=== PATIENT | female | born 1935 | race Caucasian/White ===

== ENCOUNTER 2016-12-15 06:13 | Day surgery (SDC) | payer MEDICARE ==
[2016-12-10 16:18] VITALS: BMI 25.4
[~2016-12-15 06:13] MED LIST: LACTATED RINGERS 1,000 ML IV SCH
[2016-12-15 06:55] VITALS: RESP 16; TEMP 97.9
[2016-12-15] MEDS ORDERED: LIDOCAINE 1% 20 ML VIAL (10MG/ML) FOR IV START INTRADERMA ONE (06:57)
[2016-12-15 07:01] LABS: INR 1.1 (<1.1); Prothrombin Time 10.9 sec (9.0-12.0)
[2016-12-15] MEDS ORDERED: MIDAZOLAM 2 MG/2 ML VIAL ONE (07:56)
[2016-12-15] MEDS ORDERED: TRIAMCINOLONE ACETONIDE 40 MG/ML 1 ML VIAL ONE (07:56)
[2016-12-15] MEDS ORDERED: BUPIVACAINE (PF) 0.5% 30 ML VIAL ONE (07:56)
[2016-12-15] MEDS ORDERED: fentaNYL (PF) 50 MCG/ML 2 ML AMP ONE (07:56)
--- NOTE | 2016-12-15 08:27 | P.PCN ---
Date of Procedure: 12/15/16 Procedure(s) Performed: PREOPERATIVE DIAGNOSIS:1- Lumbar post laminectomy syndrome. 2-bilateral trochanteric bursitis POSTOPERATIVE DIAGNOSIS= same as preoperative diagnosis PROCEDURE: 1. Caudal epidural steroid injection under fluoroscopic guidance. 2-bilateral trochanteric bursa steroid injection under fluoroscopy guidance ANESTHESIA= Local with 1% lidocaine; 5ml for subcutaneous infiltrations and IV versed 1 mg ,and fentanyl 50 mcg EBL: None. PROCEDURE INDICATION: The patient with neuropathic pain radiating distally returns for caudal epidural steroid injection and bilateral trochanteric bursa steroid injection. PROCEDURE DESCRIPTION: The patient was seen and identified in the preoperative area. Risks, benefits, complications, and alternatives were discussed with the patient. The patient agreed to proceed with the procedure and signed the consent. IV was started, and vital signs were stable. Patient was taken to the OR and time out was completed. The patient was placed in the prone position on procedure table and a pillow was placed under the abdomen to reduce lumbar lordosis. The lumbosacral area was prepped and draped in the usual sterile fashion. Critical pause was taken. Vital signs were closely monitored during the procedure. Using lateral fluoroscopy the anterior-posterior plates of the sacrum were identified and the skin and deeper tissues corresponding into sacrococcygeal ligament were anesthetized using approximately 3 mL of 1% lidocaine. Then under fluoroscopy, a 3-1/2-inch 20-gauge Tuohy epidural needle was guided through the sacrococcygeal ligament, and into the epidural space. then after negative aspiration for CSF, blood, and with no paresthesias, Kenalog 40mg, 2ml of 1% preservative free Lidocaine with 6 ml of preservative free normal saline(total of 10ml)solution was injected with washout of epidurogram. Needle was withdrawn intact. (Omnipaque was not injected because patient has ALLERGY to IVP dye) Procedure description= the country bursa area/hip area prepped with chlorhexidine x3 , and draped with a sterile fashion, vital signs were closely monitored during the procedure, the fluoroscopy camera was placed in the AP view on the right trochanteric bursa was identified, local infiltration of the skin and subcutaneous tissue with lidocaine 1% 2 mL then a 22-gauge Quincke- type spinal needle advanced slowly under fluoroscopy and placed in the right trochanteric bursa,, placement confirmed with AP and lateral view, and after appropriate needle placement confirmed and after negative aspiration for heme and CSF and there was no paresthesia during the injection, 5 ml of Marcaine 0.5 % and 20 mg of Kenalog injected after negative aspiration, the needle removed, and the entire same procedure was repeated for the left trochanteric bursa Patient tolerated the procedure well without any complication, The patient returned to supine position after the back was cleaned and a Band- Aid applied, the patient transported to recovery room in stable condition and he was monitored for 30 minutes before he was discharged home and then patient was reexamined before going home and patient was discharged in stable condition and patient will follow up with the pain clinic in a few weeks COMPLICATIONS: None DISPOSITION / PLANS: The patient was placed in a supine position and transferred to the recovery area in a stable condition for observation and was discharged from the recovery room after meeting discharge criteria. Home discharge instructions given to the patient by the staff. The patient was reexamined prior to discharge. The patient will schedule a follow up in the clinic in 2-4 weeks.
--- NOTE | 2016-12-15 08:35 | FL ---
Fluoroscopy History: Caudal and Troch. Bursa Bilateral Caudal and Troch. Bursa Bilateral 5 sec fluoro
[2016-12-15 08:48] VITALS: BP 138/65; PULSE 63
[2016-12-15] MEDS ORDERED: IV FLUID CONTINUATION 1,000 ML IV ONE (09:02)
== END 2016-12-15 09:09 | disposition home or self-care (01) ==
LOC: ORPAIN 06:13
PROVIDERS: ATTEND Specialist
DX: M96.1 Postlaminectomy syndrome, not elsewhere classified (principal); M70.62 Trochanteric bursitis, left hip; M70.61 Trochanteric bursitis, right hip; Z88.2 Allergy status to sulfonamides; Z88.8 Allergy status to other drugs, medicaments and biological substances; Z91.041 Radiographic dye allergy status; Z88.5 Allergy status to narcotic agent; Z91.013 Allergy to seafood; M54.5 Low back pain; M79.2 Neuralgia and neuritis, unspecified
CPT/HCPCS: 99152; 85610; 62323; 20610; J2250; J3301; J3010

== ENCOUNTER 2017-01-29 08:29 | Day surgery (SDC) | payer MEDICARE ==
[2017-01-27 09:57] VITALS: BMI 23.2
[2017-01-29 08:52] VITALS: RESP 18; TEMP 98.1
[2017-01-29] MEDS ORDERED: IOHEXOL 180 MG/ML 1 ML ML ONE (09:18)
[2017-01-29] MEDS ORDERED: fentaNYL (PF) 50 MCG/ML 2 ML AMP ONE (09:18)
[2017-01-29] MEDS ORDERED: TRIAMCINOLONE ACETONIDE 40 MG/ML 1 ML VIAL ONE (09:18)
[2017-01-29] MEDS ORDERED: BUPIVACAINE (PF) 0.25% 30 ML VIAL ONE (09:18)
[2017-01-29] MEDS ORDERED: MIDAZOLAM 2 MG/2 ML VIAL ONE (09:18)
--- NOTE | 2017-01-29 09:33 | P.PCN ---
Date of Procedure: 01/29/17 Surgeon: Zachary Domínguez Pathology: none sent Condition: stable Disposition: PACU Description of Procedure: PREOPERATIVE DIAGNOSIS: Lumbar post laminectomy syndrome; bilateral trochanteric bursitis POSTOPERATIVE DIAGNOSIS: same PROCEDURE: 1. Caudal epidural steroid injection under fluoroscopic guidance. 2. Bilateral trochanteric bursa injections under fluoroscopic guidance ANESTHESIA: Local with 1% lidocaine; IV sedation with Versed/fentanyl EBL: None. PROCEDURE INDICATION: The patient with postlaminectomy syndrome and neuropathic pain radiating distally returns for caudal epidural steroid injection. Patient also has tenderness to palpation over bilateral hips and presents for bursa injection. Patient is on Coumadin but has been off for five days. PT 10.6, INR 1.0 this morning. PROCEDURE DESCRIPTION: The patient was seen and identified in the preoperative area. Risks, benefits, complications, and alternatives were discussed with the patient including but not limited to bleeding, infection, nerve damage, incomplete pain relief, and allergic reactions to medications.. The patient agreed to proceed with the procedures and signed the informed consent after all questions were answered. IV was started, and vital signs were stable. Patient was taken to the OR and time out was completed to verify proper patient , laterality of pain and procedure, and allergies. The patient was placed in the prone position on procedure table and a pillow was placed under the abdomen to reduce lumbar lordosis. The lumbosacral area was prepped and draped in the usual sterile fashion. Critical pause was taken. Vital signs were closely monitored during the procedure. Using lateral fluoroscopy the anterior-posterior plates of the sacrum were identified and the skin and deeper tissues corresponding into sacrococcygeal ligament were anesthetized using approximately 3 mL of 1% lidocaine. Then under fluoroscopy, a 3-1/2-inch 20-gauge Tuohy epidural needle/22-gauge 3-1/2 inch spinal needle was guided through the sacrococcygeal ligament, and into the epidural space. After negative aspiration for CSF, blood, and with no paresthesias, Kenalog 40mg, 3 ml of 1% preservative free lidocaine with 8ml of preservative free normal saline (total of 12 ml) solution was injected with washout of epidurogram. Needle was withdrawn intact. Skin was cleansed, and bandage was applied. Attention was then turned to the hips and bilateral hip areas were prepped and draped in the usual sterile fashion. The right subtronchanteric space was identified by fluoroscopy. Block solution was prepared with 40 mg of Kenalog and 9 ml of 0.25% bupivacaine preservative-free. After local infiltration, a 22- gauge 3.5 inch needle was advanced toward the right subtrochanteric space, and after contact with bone, the needle was retracted approximately 1 mm. After negative aspiration, 5 mL of block solution was injected. This was repeated on the Left side. [place] were removed intact, skin was cleansed, and bandages were applied. COMPLICATIONS: None. COMMENTS: DISPOSITION / PLANS: The patient was placed in a supine position and transferred to the recovery area in a stable condition for observation and was discharged from the recovery room after meeting discharge criteria. Home discharge instructions given to the patient by the staff. The patient was reexamined prior to discharge and there were no issues. The patient will schedule a follow up in the clinic in 4-6 weeks as this is her third injection.
[2017-01-29] MEDS ORDERED: IV FLUID CONTINUATION 1,000 ML IV ONE (09:39)
--- NOTE | 2017-01-29 09:45 | FL ---
Fluoroscopy INDICATION: Pain FINDINGS: Fluoroscopy time: 14 seconds. Images obtained: 4. IMPRESSIONS: 1. Documentation of fluoroscopy.
[2017-01-29 09:57] VITALS: BP 141/69; PULSE 61
== END 2017-01-29 10:13 | disposition home or self-care (01) ==
LOC: ORPAIN 08:29
PROVIDERS: ATTEND Anesthesiology
DX: G89.29 Other chronic pain (principal); M54.5 Low back pain; M96.1 Postlaminectomy syndrome, not elsewhere classified; M70.62 Trochanteric bursitis, left hip; M70.61 Trochanteric bursitis, right hip; E78.5 Hyperlipidemia, unspecified; I48.91 Unspecified atrial fibrillation; Z79.01 Long term (current) use of anticoagulants; I10 Essential (primary) hypertension; K21.9 Gastro-esophageal reflux disease without esophagitis; E03.9 Hypothyroidism, unspecified; Z79.82 Long term (current) use of aspirin; Z79.899 Other long term (current) drug therapy; Z88.2 Allergy status to sulfonamides; Z91.041 Radiographic dye allergy status; Z88.5 Allergy status to narcotic agent; Z91.013 Allergy to seafood
CPT/HCPCS: 62323; 20610; 99152; J2250; J3301; Q9965; J3010

== ENCOUNTER → 2017-01-29 | Outpatient (CLI) | payer MEDICARE ==
[2017-01-29 08:55] LABS: Prothrombin Time 10.6 sec (9.0-12.0)
[2017-01-29 10:42] LABS: Uric Acid 5.6 mg/dL (3.7-7.4)
[2017-01-29 10:45] LABS: Rheumatoid Factor, Qnt <9 IU/mL (<12)
== END | disposition home or self-care (01) ==
LOC: LABWHC1 08:00
PROVIDERS: ATTEND Internal Medicine
DX: Z51.81 Encounter for therapeutic drug level monitoring (principal); Z79.01 Long term (current) use of anticoagulants
CPT/HCPCS: 36415; 84550; 85610; 85652; 86038; 86431

== ENCOUNTER → 2017-02-23 | Outpatient (CLI) | payer MEDICARE ==
[2017-02-23 15:16] VITALS: BP 109/52; PULSE 70; RESP 16; TEMP 97.8
--- NOTE | 2017-02-23 19:28 | P.PN ---
Subjective This is follow-up visit for this patient with a history of severe and chronic low back pain secondary to lumbar postlaminectomy pain syndrome Bilateral trochanteric bursitis, status post caudal epidural steroid injections, and bilateral trochanteric bursa steroid injection, and this helped Her low back pain significantly, her visual analog scale now is 2/10 since the injection, it was 8/10 before the injection, and she is currently on [place] 7.5/325 every 6 hours when necessary (she is getting prescription refills from her primary care doctor Tushar ) Patient denies any side effects of the medication, denies excessive drowsiness or sleepiness, denies suicidal ideation, and reports that the current pain medication is helping To control the pain and improve activity of daily living Physical Examinations : 1-Constitutiona : Cooperative , not in acute distress . 2-HEENT : nech ; supple , no Lymphadenopathy , no Thyromegaly , normal thyroid size . eyes : no ptosis , no icterus, no photophobia . ENT : normal of hearing , normal oropharynx , no Thrush . 3- Respiratory : Chest clear to auscultations Bilaterally , no wheezing , no Rhonchi . 4- Cardiovascular : regular rate and rhythem , S1 , S2 , no S3 , no S4. 5- Gastrointestinal : abdomen soft no tenderness , bowel sounds positive all four quadrents , no organomegally . 6- Genitourinary : Defferred . 7- neurologic : Cranial nerve II to XII intact , no focal neurological deffecit . 8-psychatric : alert , oriented X 3 , appropriate affect , intact judgment and insight . 9-Lymphatic : no Lymphadenopathy . 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, and bilateral trochanteric bursitis Pain improved significantly after the injection , and she is currently taking [place] 7.5/325 every 6 hours when necessary She denies any side effect of the medication , and she reported the current pain medication helping her to control her pain - diagnoses, prognosis, and treatment options including but not limited to physical therapy, surgical interventions, interventional therapies , and medication management including narcotics and adjuvant medication were discussed with the patient and all The questions answered, patient will follow up in the pain clinic in 2 months, if she had pain at that time then we'll consider scheduling her to Have cobbled appearance steroid injection, and to Trechonteric bursa steroid injection, and she has to stop Coumadin for 5 days before The procedure -medication management = she is getting medication refilled from her primary care * Objective - Vital Signs Vital signs: Vital Signs Temp 97.8 F 02/23/17 15:11 Pulse 70 02/23/17 15:11 Resp 16 02/23/17 15:11 BP 109/52 02/23/17 15:11 Pulse Ox 96 02/23/17 15:11 Intake & Output 02/23/17 02/23/17 02/24/17 06:59 18:59 06:59 Weight 55.792 kg
== END | disposition home or self-care (01) ==
LOC: PNWHC3 14:28
PROVIDERS: ATTEND Specialist
DX: M96.1 Postlaminectomy syndrome, not elsewhere classified (principal); M70.62 Trochanteric bursitis, left hip; M70.61 Trochanteric bursitis, right hip; Z79.899 Other long term (current) drug therapy
CPT/HCPCS: 99211

== ENCOUNTER → 2017-04-13 | Outpatient (CLI) | payer MEDICARE ==
[2017-04-13 14:12] VITALS: BP 159/64; PULSE 59; RESP 16; TEMP 97.9
--- NOTE | 2017-04-13 14:42 | P.PN ---
Progress Note - Text This is a nice 82-year-old lady with history of failed back surgery syndrome and lower back pain with radiation to the right lower extremity down to the right foot however with no paresthesia in the lower extremities. The patient feels mild weakness in the right lower extremity and she uses cane for ambulation. The patient gets significant pain relief after the injections that she gets in our clinic namely caudal epidural steroid injection with bilateral greater trochanter steroid injection. The patient had at least 3 weeks of complete pain relief after the last injection and she would like us to do another injection since her pain is starting to come back. The patient had 2 steroid injections in 2017 so far and she had 4 of them in 2016. The patient is aware that we have to avoid overusage of steroids for these injections however I think she will benefit from another injection in April 2017. The patient also understands that she has to stop her Coumadin 5 days before the date of any future injection. The patient uses [place] as needed for her pain and she gets that prescribed by her family physician. By physical exam she is alert oriented 3 in no apparent distress. Neuro exam of the lower extremities showed decreased muscle strength to 4 out of 5 for right knee flexion and extension compared to the left side and she has normal ankle flexion and extension bilaterally symmetrically. She does have tenderness in the tendons of the right hamstrings. she also has tenderness in both greater trochanters. She has decreased right knee reflex compared to the left side and absent ankle reflexes bilaterally. We will see the patient in a few weeks for her caudal epidural steroid injection with bilateral greater trochanter injection under fluoroscopic guidance. Also give the patient a DVD to explain spinal cord stimulator trial because she might be a good candidate for this procedure given that she has both lower back pain with radiation to the right lower extremity, however we would have to get clearance from her plastic surgeon about the Coumadin treatment during that trial period.
== END | disposition home or self-care (01) ==
LOC: PNWHC3 13:48
PROVIDERS: ATTEND Anesthesiology
DX: M54.5 Low back pain (principal); Z79.899 Other long term (current) drug therapy; Z79.52 Long term (current) use of systemic steroids
CPT/HCPCS: 99211

== ENCOUNTER → 2017-04-24 | Outpatient (CLI) | payer MEDICARE ==
--- NOTE | 2017-04-24 11:26 | MM ---
Reason for exam: clinical finding. Last mammogram was performed 6 years and 3 months ago. History: Patient is postmenopausal, history of other cancer, and had first child at age 33. Family history of premenopausal breast cancer in 2 sisters. Cyst aspiration of the right breast. 2 excisional biopsies of the right breast. Indicated problem(s): pain in the right breast. Physical Findings: Nurse did not find any significant physical abnormalities on exam. MG 3D Diag Mammo W/Cad VANNESSA Bilateral CC and MLO view(s) were taken. Prior study comparison: January 31, 2011, bilateral digital screening mammo w/CAD. November 06, 2009, bilateral diagnostic digital mammog. There are scattered fibroglandular densities. There is no discrete abnormality. No significant new findings when compared with previous films. These results were verbally communicated with the patient and result sheet given to the patient on 04/24/17. ASSESSMENT: Benign, BI-RAD 2 RECOMMENDATION: Routine screening mammogram of both breasts in 1 year.
--- NOTE | 2017-04-24 11:27 | USB ---
Reason for exam: clinical finding. History: Patient is postmenopausal, history of other cancer, and had first child at age 33. Family history of premenopausal breast cancer in 2 sisters. Cyst aspiration of the right breast. 2 excisional biopsies of the right breast. Indicated problem(s): pain in the right breast. US Breast RT Right breast ultrasound includes all four quadrants, the retroareolar region and axilla. Finding demonstrates no cystic or solid lesion seen. These results were verbally communicated with the patient and result sheet given to the patient on 04/24/17. ASSESSMENT: Negative, BI-RAD 1 RECOMMENDATION: Routine screening mammogram of both breasts in 1 year.
== END | disposition home or self-care (01) ==
LOC: RADMAMWWP 09:16
PROVIDERS: ATTEND Internal Medicine
DX: N64.4 Mastodynia (principal)
CPT/HCPCS: 76641; G0204; G0279

== ENCOUNTER 2017-05-14 07:47 | Day surgery (SDC) | payer MEDICARE ==
[2017-05-14 08:55] VITALS: RESP 18; TEMP 97.8
[2017-05-14] MEDS ORDERED: LIDOCAINE 1% 20 ML VIAL (10MG/ML) FOR IV START SQ ONE (09:07)
[2017-05-14] MEDS ORDERED: DEXAMETHASONE SOD PHOS (MDV) 100 MG/10 ML VIAL ONE (09:39)
[2017-05-14] MEDS ORDERED: fentaNYL (PF) 50 MCG/ML 2 ML AMP ONE (09:39)
[2017-05-14] MEDS ORDERED: BUPIVACAINE (PF) 0.5% 30 ML VIAL ONE (09:39)
[2017-05-14] MEDS ORDERED: MIDAZOLAM 2 MG/2 ML VIAL ONE (09:39)
--- NOTE | 2017-05-14 10:08 | FL ---
Fluoroscopy INDICATION: Pain FINDINGS: Fluoroscopy time: 11 seconds. Images obtained: 4. IMPRESSIONS: 1. Documentation of fluoroscopy.
[2017-05-14] MEDS ORDERED: IV FLUID CONTINUATION 1,000 ML IV ONE (10:10)
[2017-05-14 10:30] VITALS: BP 135/55; PULSE 56
== END 2017-05-14 10:43 | disposition home or self-care (01) ==
LOC: ORPAIN 07:47
PROVIDERS: ATTEND Specialist
DX: M96.1 Postlaminectomy syndrome, not elsewhere classified (principal); M70.62 Trochanteric bursitis, left hip; M70.61 Trochanteric bursitis, right hip; M54.5 Low back pain; Z88.8 Allergy status to other drugs, medicaments and biological substances; Z91.041 Radiographic dye allergy status
CPT/HCPCS: 99152; 62323; 20610; J2250; J3010; J1100

== ENCOUNTER → 2017-05-14 | Outpatient (CLI) | payer MEDICARE ==
[2017-05-14 08:17] LABS: INR 1.1 (<1.1); Prothrombin Time 11.2 sec (9.0-12.0)
--- NOTE | 2017-05-14 10:08 | P.PCN ---
Date of Procedure: 05/14/17 Preoperative Diagnosis: Postoperative Diagnosis: Procedure(s) Performed: PREOPERATIVE DIAGNOSIS:1- Lumbar post laminectomy syndrome. 2-bilateral trochanteric bursitis POSTOPERATIVE DIAGNOSIS:1- Lumbar post laminectomy syndrome. 2-bilateral trochanteric bursitis PROCEDURE: 1. Caudal epidural steroid injection under fluoroscopic guidance. 2. Bilateral trochanteric bursa steroid injection under fluoroscopy guidance ANESTHESIA: Local with 1% lidocaine; 5ml for subcutaneous infiltrations and IV versed 2 mg ,and fentanyl 50 mcg EBL: None. PROCEDURE INDICATION: The patient with neuropathic pain radiating distally returns for caudal epidural steroid injection. PROCEDURE DESCRIPTION: The patient was seen and identified in the preoperative area. Risks, benefits, complications, and alternatives were discussed with the patient. The patient agreed to proceed with the procedure and signed the consent. IV was started, and vital signs were stable. Patient was taken to the OR and time out was completed. The patient was placed in the prone position on procedure table and a pillow was placed under the abdomen to reduce lumbar lordosis. The lumbosacral area was prepped and draped in the usual sterile fashion. Critical pause was taken. Vital signs were closely monitored during the procedure. Using lateral fluoroscopy the anterior-posterior plates of the sacrum were identified and the skin and deeper tissues corresponding into sacrococcygeal ligament were anesthetized using approximately 3 mL of 1% lidocaine. Then under fluoroscopy, a 3-1/2-inch 20-gauge Tuohy epidural needle was guided through the sacrococcygeal ligament, and into the epidural space using loss of resistence technique.(Omnipaque was not injected because patient had ALLERGY to IVP dye) after negative aspiration for CSF, blood, and with no paresthesias, dexamethason 10 mg, 2ml of 1% preservative free Lidocaine with 6 ml of preservative free normal saline(total of 10ml)solution was injected with washout of epidurogram. Needle was withdrawn intact. Then after that the right hip area prepped with chlorhexidine 3, and then the right-sided trochanteric bursa identified under fluoroscopy, local infiltration of the skin and subcutaneous tissue with lidocaine 1% 1 ml then a 22-gauge Quincke-type needle advanced slowly under fluoroscopy and placed in the right trochanteric bursa, and after negative aspiration, Marcaine 0.5% 5 ML mixed with 5 mg of dexamethasone injected after negative aspiration and there was no paresthesia during the injection, then the same procedure repeated for the left side ,and I did the left trochanteric bursa steroid injection patient tolerated the procedure well without any complications COMPLICATIONS: None DISPOSITION / PLANS: The patient was placed in a supine position and transferred to the recovery area in a stable condition for observation and was discharged from the recovery room after meeting discharge criteria. Home discharge instructions given to the patient by the staff. The patient was reexamined prior to discharge. The patient will schedule a follow up in the clinic in 2-4 weeks. Implants: Indications for Procedure: Operative Findings: Description of Procedure:
== END | disposition home or self-care (01) ==
LOC: LABWHC1 07:31
PROVIDERS: ATTEND Anesthesiology
DX: Z51.81 Encounter for therapeutic drug level monitoring (principal); Z79.01 Long term (current) use of anticoagulants
CPT/HCPCS: 36415; 85610

== ENCOUNTER 2017-10-03 14:38 | Emergency (ER) | payer MEDICARE ==
[2017-10-03 14:47] VITALS: RESP 18
[2017-10-03] MEDS ORDERED: KETOROLAC 30 MG/ML 1 ML VIAL IM STA (15:50)
--- NOTE | 2017-10-03 15:50 | ED ---
General Adult HPI - General Chief complaint: ENT Stated complaint: Jaw Pain Time Seen by Provider: 10/03/17 14:49 Source: patient, RN notes reviewed, old records reviewed Mode of arrival: wheelchair Limitations: no limitations - History of Present Illness Initial comments: This is a 82-year-old female to the ER for evaluation. Patient presents today for evaluation regarding dropping. Left-sided jaw pain. Severe. She woke up with this this morning although she did have some pain yesterday. Patient can bite down with his is having severe pain in the left jaw. Patient has no temporal pain. Patient has no problems with hearing. Patient was at the ER today from medics pressure evaluation regarding dropping within x-ray x-ray showed no fracture. - Related Data Home Medications Medication Instructions Recorded Confirmed Levothyroxine Sodium [Synthroid] 112 mcg PO QAM 04/27/14 05/14/17 Montelukast [Singulair] 10 mg PO HS 04/27/14 05/14/17 ALPRAZolam [Xanax] 0.5 mg PO BID PRN 01/03/15 05/14/17 Azelastine HCl [Astepro] 1 spray NASAL BID PRN 01/03/15 05/14/17 Biotin 5 mg PO DAILY 01/03/15 05/14/17 Cholecalciferol [Vitamin D3] 2,000 unit PO DAILY 01/03/15 05/14/17 Diphenox-Atrop 2.5-0.025 mg 1 - 2 tab PO BID PRN 01/03/15 05/14/17 [Lomotil] Iron 65 mg PO HS 01/03/15 05/14/17 Aspirin 81 mg PO Q48H 07/12/15 05/14/17 Atorvastatin Calcium [Lipitor] 20 mg PO HS 07/12/15 05/14/17 Losartan Potassium 25 mg PO HS 07/12/15 05/14/17 Primidone [Mysoline] 50 mg PO TID 07/12/15 05/14/17 Triamcinolone 0.1% Lotion [Kenalog 1 applic TOPICAL BID PRN 07/12/15 05/14/17 0.1% Lotion] Metoprolol Tartrate [Lopressor] 25 mg PO QAM 02/22/16 05/14/17 Warfarin [Coumadin] 5 mg PO SUMOWEFR 02/22/16 05/14/17 Warfarin [Coumadin] 8 mg PO TUTHSA 02/22/16 05/14/17 Diazepam [Valium] 5 mg PO DIRECTED PRN 04/24/16 05/14/17 HYDROcodone/APAP 7.5-325MG [[place] 1 tab PO Q4H PRN 04/24/16 05/14/17 7.5-325] Erythromycin Ophth Oint [Romycin 1 drops BOTH EYES DAILY PRN 09/09/16 05/14/17 Ophth Oint] Lidocaine 5% Patch [Lidoderm] 1 patch TOPICAL DAILY PRN 12/10/16 05/14/17 Famotidine [Pepcid] 20 mg PO QAM 12/15/16 05/14/17 Potassium 25 mg PO DAILY 01/27/17 05/14/17 Previous Rx's Medication Instructions Recorded Naproxen 250 mg PO BID #14 tablet 10/03/17 Allergies Allergy/AdvReac Type Severity Reaction Status Date / Time adhesive Allergy Rash/Hives, Verified 10/03/17 16:27 RIPS SKIN Iodinated Contrast- Oral and Allergy Unknown Verified 10/03/17 16:27 IV Dye [Iodinated Contrast Media - IV Dye] meperidine HCl [From Demerol] Allergy Hallucinati Verified 10/03/17 16:27 ons shellfish derived Allergy Anaphylaxis Verified 10/03/17 16:27 Sulfa (Sulfonamide Allergy Unknown Verified 10/03/17 16:27 Antibiotics) zolpidem tartrate Allergy Hallucinati Verified 10/03/17 16:27 [From Ambien] ons morphine AdvReac Nausea & Verified 10/03/17 16:27 Vomiting & Diarrhea Review of Systems ROS Statement: Those systems with pertinent positive or pertinent negative responses have been documented in the HPI. ROS Other: All systems not noted in ROS Statement are negative. Past Medical History Past Medical History: Atrial Fibrillation, Asthma, Coronary Artery Disease (CAD) , Cancer, COPD, CVA/TIA, GERD/Reflux, Hyperlipidemia, Hypertension, Osteoarthritis (OA), Thyroid Disorder Additional Past Medical History / Comment(s): PAIN IN LOWER BACK AND GOES DOWN HER LEGS TO HER FEET. Hx spastic colitis, skin ca on face and shoulder, kidney stones. History of Any Multi-Drug Resistant Organisms: None Reported Past Surgical History: Breast Surgery, Cholecystectomy, Coronary Bypass/CABG, Heart Catheterization, Hysterectomy, Orthopedic Surgery Additional Past Surgical History / Comment(s): MULTIPLE SKIN CANCERS BURNED OFF THIS PAST MONTH (05/09).Hip surgery, surgery to repair upper palate, hand surgery. CABG X4. [facility] Procedures. Past Anesthesia/Blood Transfusion Reactions: No Reported Reaction Past Psychological History: No Psychological Hx Reported Smoking Status: Never smoker Past Alcohol Use History: Rare Past Drug Use History: None Reported - Past Family History Sister(s) Family Medical History: Cancer Additional Family Medical History / Comment(s): breast cancer Father Family Medical History: Cancer Additional Family Medical History / Comment(s): LUNG CANCER Mother Family Medical History: CVA/TIA General Exam Limitations: no limitations General appearance: alert, in no apparent distress Head exam: Present: atraumatic, normocephalic, normal inspection Eye exam: Present: normal appearance, PERRL, EOMI. Absent: scleral icterus, conjunctival injection, periorbital swelling ENT exam: Present: normal exam, mucous membranes moist Neck exam: Present: normal inspection. Absent: tenderness, meningismus, lymphadenopathy Respiratory exam: Present: normal lung sounds bilaterally. Absent: respiratory distress, wheezes, rales, rhonchi, stridor Cardiovascular Exam: Present: regular rate, normal rhythm, normal heart sounds. Absent: systolic murmur, diastolic murmur, rubs, gallop, clicks GI/Abdominal exam: Present: soft, normal bowel sounds. Absent: distended, tenderness, guarding, rebound, rigid Extremities exam: Present: normal inspection, full ROM, normal capillary refill. Absent: tenderness, pedal edema, joint swelling, calf tenderness Back exam: Present: normal inspection Neurological exam: Present: alert, oriented X3, CN II-XII intact Psychiatric exam: Present: normal affect, normal mood Skin exam: Present: warm, dry, intact, normal color. Absent: rash Course Vital Signs 10/03/17 10/03/17 14:41 15:58 Temperature 96.8 F L Pulse Rate 53 L 54 L Respiratory 18 18 Rate Blood Pressure 194/77 177/75 O2 Sat by Pulse 99 98 Oximetry - Reevaluation(s) Reevaluation #1: 10/03/17 15:48 Patient refusing pain control at this time, states she takes [place] and does not want take more than one [place] in 1 day Medical Decision Making - Medical Decision Making 82 female the ER for evaluation. Patient currently has left-sided jaw pain. TMJ. Patient will be put on appropriate therapy to discharge from - Radiology Data Radiology results: report reviewed (CT soft tissue neck and facial bones is negative), image reviewed Disposition Clinical Impression: Disorder of left temporomandibular joint Disposition: HOME SELF-CARE Condition: Good Instructions: Temporomandibular Disorder (ED) Referrals: Fabián Finley MD [Primary Care Provider] - 1-2 days
--- NOTE | 2017-10-03 15:58 | CT ---
EXAMINATION TYPE: CT facial bones wo con DATE OF EXAM: 10/03/2017 COMPARISON: NONE HISTORY: Let sided jaw pain. CT DLP: 605.9 mGycm Automated exposure control for dose reduction was used. TECHNIQUE: CT scan of the sinuses is performed without contrast, axial images are obtained, coronal r eformatted images are also reviewed. FINDINGS: The orbital margins are intact. There is no evidence of a blowout fracture. There is fairly normal aeration of the paranasal sinuses. There is bilateral patency of the ostiomeatal complex. Max illa is intact. The mandibular ring appears intact. Zygomatic arches appear normal. There is no evide nce of an orbital mass. Nasal bone appears intact. There is some deformity of the mandibular condyles with narrowing of the temporomandibular joint spac es. 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 No fracture seen.
--- NOTE | 2017-10-03 16:02 | CT ---
EXAMINATION TYPE: CT soft tissue neck wo con DATE OF EXAM: 10/03/2017 HISTORY: Let sided jaw pain. COMPARISON: NONE CT DLP: 297.9 mGycm. Automated Exposure Control for Dose Reduction was Utilized. TECHNIQUE: CT scan of the neck is performed , axial images are obtained, coronal and sagittal reform atted images are reviewed. FINDINGS: There is atherosclerotic calcification in the carotid arteries at the bifurcations. Epiglottis appear s normal. Subglottic trachea appears normal. There is no evidence of a pharyngeal mass. Thyroid gland is small. There is asymmetry of the submandibular salivary glands. The parotid glands are symmetric. The tonsils and adenoids appear normal. There are spondylotic changes in the mid and lower cervical spine. There is no evidence of any significant cervical adenopathy. CONCLUSION: Negative CT scan of the cervical soft tissues. Atherosclerotic vascular disease noted.
[2017-10-03] MEDS ORDERED: DEXAMETHASONE 4 MG TAB PO STA (16:30)
[2017-10-03 16:40] VITALS: BP 150/64; PULSE 69; TEMP 97
== END 2017-10-03 16:48 | disposition home or self-care (01) ==
LOC: EC 14:38
DX: M26.602 Left temporomandibular joint disorder, unspecified (principal); I48.91 Unspecified atrial fibrillation; J45.909 Unspecified asthma, uncomplicated; J44.9 Chronic obstructive pulmonary disease, unspecified; I25.10 Atherosclerotic heart disease of native coronary artery without angina pectoris; K21.9 Gastro-esophageal reflux disease without esophagitis; E78.5 Hyperlipidemia, unspecified; I10 Essential (primary) hypertension; M19.90 Unspecified osteoarthritis, unspecified site; E07.9 Disorder of thyroid, unspecified; Z86.73 Personal history of transient ischemic attack (TIA), and cerebral infarction without residual deficits; Z85.828 Personal history of other malignant neoplasm of skin; Z79.82 Long term (current) use of aspirin; Z79.899 Other long term (current) drug therapy; Z79.01 Long term (current) use of anticoagulants; Z91.041 Radiographic dye allergy status; Z88.5 Allergy status to narcotic agent; Z88.2 Allergy status to sulfonamides; Z91.013 Allergy to seafood; Z91.048 Other nonmedicinal substance allergy status; Z88.8 Allergy status to other drugs, medicaments and biological substances
CPT/HCPCS: 70486; 70490; 99284; 96372; J8540; J1885

== ENCOUNTER → 2017-10-14 | Outpatient (CLI) | payer MEDICARE ==
--- NOTE | 2017-10-14 12:11 | XR ---
EXAMINATION TYPE: XR foot complete RT DATE OF EXAM: 10/14/2017 COMPARISON: NONE HISTORY: Nonhealing wound right second digit TECHNIQUE: Three-view right foot FINDINGS: Structures are osteopenic. Surgical clips are within the medial ankle. There is hallux valg us deformity of the first digit. No acute fractures are evident. No cortical erosion to suggest acute osteomyelitis radiographically a pparent. 3 phase bone scan could be performed for sufficient suspicion. IMPRESSION: 1. No suspicious changes to suggest acute osteomyelitis based on x-ray
== END | disposition home or self-care (01) ==
LOC: RADXRMAIN 11:29
PROVIDERS: ATTEND Internal Medicine
DX: M79.89 Other specified soft tissue disorders (principal); M19.90 Unspecified osteoarthritis, unspecified site

== ENCOUNTER 2018-01-24 13:52 | Observation (INO) | payer MEDICARE ==
[2018-01-24 14:41] LABS: Basophils % (A) 1 %; Eosinophils # (A) 0.1 k/uL (0-0.7); Eosinophils % (A) 3 %; HCT 37.2 % (34.0-46.0); HGB 11.7 gm/dL (11.4-16.0); Lymphocytes % (A) 23 %; MCH 31.1 pg (25.0-35.0); MCHC 31.4 g/dL (31.0-37.0); MCV 99.1 fL (80.0-100.0); Monocytes # (A) 0.3 k/uL (0-1.0); Monocytes % (A) 8 %; Neutrophils # (A) 2.7 k/uL (1.3-7.7); Neutrophils % (A) 63 %; Platelet Count 168 k/uL (150-450); RBC 3.75 m/uL (3.80-5.40); RDW 12.7 % (11.5-15.5); WBC 4.3 k/uL (3.8-10.6)
--- NOTE | 2018-01-24 14:43 | ED ---
General Adult HPI - General Chief complaint: Chest Pain Stated complaint: chest pain Time Seen by Provider: 01/24/18 14:03 Source: family Mode of arrival: wheelchair Limitations: no limitations - History of Present Illness Initial comments: 82-year-old female presents for evaluation of chest pain. Patient had a 30 minute episode of substernal chest pain that occurred approximately 3 hours ago. Patient's pain was while at rest. She was sitting at [employer]. Describes the pain as sharp. Nonradiating, no back pain no shoulder pain. Patient's pain is resolved at the time my evaluation. She denies any associated symptoms no nausea, no diaphoresis. No abdominal pain. Patient has past medical history of coronary artery disease status post CABG. She denies any chest pain with exertion over the past several months. Denies any lower extremity swelling. Denies cough or dyspnea. - Related Data Home Medications Medication Instructions Recorded Confirmed Montelukast [Singulair] 10 mg PO HS 04/27/14 01/24/18 ALPRAZolam [Xanax] 0.5 mg PO BID PRN 01/03/15 01/24/18 Azelastine HCl [Astepro] 1 spray NASAL BID PRN 01/03/15 01/24/18 Biotin 5 mg PO DAILY 01/03/15 01/24/18 Cholecalciferol [Vitamin D3] 2,000 unit PO DAILY 01/03/15 01/24/18 Diphenox-Atrop 2.5-0.025 mg 1 - 2 tab PO BID PRN 01/03/15 01/24/18 [Lomotil] Aspirin 81 mg PO Q48H 07/12/15 01/24/18 Atorvastatin Calcium [Lipitor] 20 mg PO HS 07/12/15 01/24/18 Losartan Potassium 25 mg PO HS 07/12/15 01/24/18 Primidone [Mysoline] 50 mg PO TID 07/12/15 01/24/18 Metoprolol Tartrate [Lopressor] 25 mg PO QAM 02/22/16 01/24/18 Warfarin [Coumadin] 8 mg PO TUTHSA 02/22/16 01/24/18 HYDROcodone/APAP 7.5-325MG [[place] 1 tab PO TID PRN 04/24/16 01/24/18 7.5-325] Famotidine [Pepcid] 20 mg PO QAM 12/15/16 01/24/18 Levothyroxine Sodium [Synthroid] 112 mcg PO DAILY 10/03/17 01/24/18 Temazepam [Restoril] 15 mg PO HS PRN 10/03/17 01/24/18 Warfarin [Coumadin] 5 mg PO SUMOWEFR 10/03/17 01/24/18 Albuterol Nebulized [Ventolin 2.5 mg INHALATION RT-BID PRN 01/24/18 01/24/18 Nebulized] Ammonium Lactate Lotion 1 applic TOPICAL BID PRN 01/24/18 01/24/18 [Lac-Hydrin 12% Lotion] Betamethasone/Propylene Glyc 1 applic TOPICAL DAILY PRN 01/24/18 01/24/18 [Betamethasone Dp Aug 0.05% Lot] Colloidal Oatmeal [Eucerin Eczema 1 applic TOPICAL BID PRN 01/24/18 01/24/18 Relief] Ferrous Sulfate [Feosol] 325 mg PO HS 01/24/18 01/24/18 Fluorouracil [Efudex] 1 applic TOPICAL DAILY PRN 01/24/18 01/24/18 Mometasone Furoate 1 applic TOPICAL DAILY PRN 01/24/18 01/24/18 traZODone HCL [Desyrel] 50 mg PO HS PRN 01/24/18 01/24/18 Allergies Allergy/AdvReac Type Severity Reaction Status Date / Time adhesive Allergy Rash/Hives, Verified 01/24/18 14:34 RIPS SKIN Iodinated Contrast- Oral and Allergy Unknown Verified 01/24/18 14:34 IV Dye [Iodinated Contrast Media - IV Dye] meperidine HCl [From Demerol] Allergy Hallucinati Verified 01/24/18 14:34 ons shellfish derived Allergy Anaphylaxis Verified 01/24/18 14:34 Sulfa (Sulfonamide Allergy Unknown Verified 01/24/18 14:34 Antibiotics) zolpidem tartrate Allergy Hallucinati Verified 01/24/18 14:34 [From Ambien] ons morphine AdvReac Nausea & Verified 01/24/18 14:34 Vomiting & Diarrhea Review of Systems ROS Statement: Those systems with pertinent positive or pertinent negative responses have been documented in the HPI. ROS Other: All systems not noted in ROS Statement are negative. Past Medical History Past Medical History: Atrial Fibrillation, Asthma, Coronary Artery Disease (CAD) , Cancer, COPD, CVA/TIA, GERD/Reflux, Hyperlipidemia, Hypertension, Osteoarthritis (OA), Thyroid Disorder Additional Past Medical History / Comment(s): PAIN IN LOWER BACK AND GOES DOWN HER LEGS TO HER FEET. Hx spastic colitis, skin ca on face and shoulder, kidney stones. History of Any Multi-Drug Resistant Organisms: None Reported Past Surgical History: Breast Surgery, Cholecystectomy, Coronary Bypass/CABG, Heart Catheterization, Hysterectomy, Orthopedic Surgery Additional Past Surgical History / Comment(s): MULTIPLE SKIN CANCERS BURNED OFF THIS PAST MONTH (05/09).Hip surgery, surgery to repair upper palate, hand surgery. CABG X4. [facility] Procedures. Past Anesthesia/Blood Transfusion Reactions: No Reported Reaction Past Psychological History: No Psychological Hx Reported Smoking Status: Never smoker Past Alcohol Use History: Rare Past Drug Use History: None Reported - Past Family History Sister(s) Family Medical History: Cancer Additional Family Medical History / Comment(s): breast cancer Father Family Medical History: Cancer Additional Family Medical History / Comment(s): LUNG CANCER Mother Family Medical History: CVA/TIA General Exam Limitations: no limitations General appearance: alert, in no apparent distress Head exam: Present: atraumatic, normocephalic Eye exam: Present: normal appearance, PERRL, EOMI Neck exam: Present: normal inspection. Absent: tenderness Respiratory exam: Present: normal lung sounds bilaterally. Absent: respiratory distress Cardiovascular Exam: Present: regular rate, normal rhythm GI/Abdominal exam: Present: soft. Absent: distended, tenderness Extremities exam: Present: normal inspection, normal capillary refill. Absent: pedal edema Neurological exam: Present: alert, oriented X3, CN II-XII intact. Absent: motor sensory deficit Psychiatric exam: Present: normal affect, normal mood Skin exam: Present: warm, dry, intact. Absent: cyanosis, diaphoretic Course Vital Signs 01/24/18 01/24/18 13:59 15:22 Temperature 98.0 F Pulse Rate 58 L 50 L Respiratory 20 16 Rate Blood Pressure 139/69 147/67 O2 Sat by Pulse 100 100 Oximetry EKG Findings - EKG Comments: EKG Findings:: EKG shows sinus bradycardia, ventricular rate 59,. 170, QRS duration 80, QTC 41, no ST segment elevation Medical Decision Making - Medical Decision Making 82-year-old female presenting with anterior chest pain. Pain resolved at the time my evaluation. She has no chest pain while in the emergency department. EKG shows no definitive ischemic changes. Chest x-ray negative for acute process. She does have history of atrial fibrillation and is on Coumadin. White blood cell count normal 4.3, hemoglobin 11.7, potassium mildly elevated at 5.7 creatinine 1.4, patient does have baseline CK D, most recent creatinine 1.09. BNP is normal, troponin is negative. Patient's pain is atypical and resolved, however she does have significant risk factors. She will be placed in observation for serial cardiac enzymes and cardiology consult. - Lab Data Result diagrams: 01/24/18 14:10 01/24/18 14:10 Lab Results 01/24/18 01/24/18 01/24/18 Range/Units 14:10 14:10 14:10 WBC 4.3 (3.8-10.6) k/uL RBC 3.75 L (3.80-5.40) m/uL Hgb 11.7 (11.4-16.0) gm/dL Hct 37.2 (34.0-46.0) % MCV 99.1 (80.0-100.0) fL MCH 31.1 (25.0-35.0) pg MCHC 31.4 (31.0-37.0) g/dL RDW 12.7 (11.5-15.5) % Plt Count 168 (150-450) k/uL Neutrophils % 63 % Lymphocytes % 23 % Monocytes % 8 % Eosinophils % 3 % Basophils % 1 % Neutrophils # 2.7 (1.3-7.7) k/uL Lymphocytes # 1.0 (1.0-4.8) k/uL Monocytes # 0.3 (0-1.0) k/uL Eosinophils # 0.1 (0-0.7) k/uL Basophils # 0.0 (0-0.2) k/uL PT (9.0-12.0) sec INR (<1.2) APTT (22.0-30.0) sec Sodium 143 (137-145) mmol/L Potassium 5.7 H (3.5-5.1) mmol/L Chloride 107 (98-107) mmol/L Carbon Dioxide 27 (22-30) mmol/L Anion Gap 9 mmol/L BUN 36 H (7-17) mg/dL Creatinine 1.44 H (0.52-1.04) mg/dL Est GFR (MDRD) Af Amer 42 (>60 ml/min/1.73 sqM) Est GFR (MDRD) Non-Af 35 (>60 ml/min/1.73 sqM) Glucose 114 H (74-99) mg/dL Calcium 9.0 (8.4-10.2) mg/dL Magnesium 2.0 (1.6-2.3) mg/dL Total Bilirubin 0.3 (0.2-1.3) mg/dL AST 33 (14-36) U/L ALT 37 (9-52) U/L Alkaline Phosphatase 77 (38-126) U/L Total Creatine Kinase 49 (30-135) U/L CK-MB (CK-2) <0.2 (0.0-2.4) ng/mL CK-MB (CK-2) Rel Index Troponin I <0.012 (0.000-0.034) ng/mL NT-Pro-B Natriuret Pep pg/mL Total Protein 6.4 (6.3-8.2) g/dL Albumin 3.8 (3.5-5.0) g/dL Lipase 103 (23-300) U/L 01/24/18 01/24/18 Range/Units 14:10 14:10 WBC (3.8-10.6) k/uL RBC (3.80-5.40) m/uL Hgb (11.4-16.0) gm/dL Hct (34.0-46.0) % MCV (80.0-100.0) fL MCH (25.0-35.0) pg MCHC (31.0-37.0) g/dL RDW (11.5-15.5) % Plt Count (150-450) k/uL Neutrophils % % Lymphocytes % % Monocytes % % Eosinophils % % Basophils % % Neutrophils # (1.3-7.7) k/uL Lymphocytes # (1.0-4.8) k/uL Monocytes # (0-1.0) k/uL Eosinophils # (0-0.7) k/uL Basophils # (0-0.2) k/uL PT 14.0 H (9.0-12.0) sec INR 1.5 H (<1.2) APTT 25.1 (22.0-30.0) sec Sodium (137-145) mmol/L Potassium (3.5-5.1) mmol/L Chloride (98-107) mmol/L Carbon Dioxide (22-30) mmol/L Anion Gap mmol/L BUN (7-17) mg/dL Creatinine (0.52-1.04) mg/dL Est GFR (MDRD) Af Amer (>60 ml/min/1.73 sqM) Est GFR (MDRD) Non-Af (>60 ml/min/1.73 sqM) Glucose (74-99) mg/dL Calcium (8.4-10.2) mg/dL Magnesium (1.6-2.3) mg/dL Total Bilirubin (0.2-1.3) mg/dL AST (14-36) U/L ALT (9-52) U/L Alkaline Phosphatase (38-126) U/L Total Creatine Kinase (30-135) U/L CK-MB (CK-2) (0.0-2.4) ng/mL CK-MB (CK-2) Rel Index Troponin I (0.000-0.034) ng/mL NT-Pro-B Natriuret Pep 685 pg/mL Total Protein (6.3-8.2) g/dL Albumin (3.5-5.0) g/dL Lipase (23-300) U/L Disposition Clinical Impression: Chest pain Disposition: ADMITTED IP TO THIS [facility] Condition: Stable Referrals: Fabián Finley MD [Primary Care Provider] - 1-2 days Decision to Admit Reason: Admit from EC Decision Date: 01/24/18 Decision Time: 16:12
[2018-01-24 14:52] LABS: INR 1.5 (<1.2); Partial Thromboplastin Time 25.1 sec (22.0-30.0)
[2018-01-24 14:53] LABS: Albumin 3.8 g/dL (3.5-5.0); Potassium 5.7 mmol/L (3.5-5.1); Total Bilirubin 0.3 mg/dL (0.2-1.3); Total Protein 6.4 g/dL (6.3-8.2)
[2018-01-24 15:02] LABS: Creatine Kinase 49 U/L (30-135)
--- NOTE | 2018-01-24 15:07 | XR ---
EXAMINATION TYPE: XR chest 2V DATE OF EXAM: 01/24/2018 COMPARISON: 09/25/2014 HISTORY: Chest pain TECHNIQUE: Frontal and lateral views of the chest are obtained. FINDINGS: There is no heart failure nor confluent pneumonic infiltrate. Costophrenic angles are rin r. There are sternal wires. There are chest leads. Bony thorax appears intact. IMPRESSION: No active cardiopulmonary disease. No change.
[2018-01-24 15:16] LABS: Creatine Kinase MB <0.2 ng/mL (0.0-2.4); Troponin I <0.012 ng/mL (0.000-0.034)
[2018-01-24] MEDS ORDERED: ACETAMINOPHEN TAB 325 MG TAB PO PRN (16:12)
[2018-01-24] MEDS ORDERED: NALOXONE 0.4 MG/ML 1 ML VIAL IV PRN (16:12)
[2018-01-24] MEDS ORDERED: ALBUTEROL NEBULIZED 2.5 MG/3 ML INHALATION PRN (16:14)
[2018-01-24] MEDS ORDERED: ALPRAZolam 0.5 MG TAB PO PRN (16:14)
[2018-01-24] MEDS: SODIUM CHLORIDE 0.9% 1,000 ML IV SCH (16:49)
[2018-01-24] MEDS ORDERED: ASPIRIN 81 MG PO SCH (17:00)
[2018-01-24] MEDS ORDERED: WARFARIN 5 MG TAB PO SCH (18:00)
[2018-01-24 18:08] VITALS: BMI 24.0
[2018-01-24 19:49] LABS: Creatine Kinase 48 U/L (30-135)
[2018-01-24 20:03] LABS: Creatine Kinase MB 0.4 ng/mL (0.0-2.4); Troponin I <0.012 ng/mL (0.000-0.034)
[2018-01-24] MEDS ORDERED: ATORVASTATIN 20 MG TAB PO SCH (21:00)
[2018-01-24] MEDS ORDERED: LOSARTAN 25 MG TAB PO SCH (21:00)
[2018-01-24] MEDS ORDERED: TEMAZEPAM 15 MG CAP PO PRN (21:55)
[2018-01-24] MEDS ORDERED: NITROGLYCERIN SL TABS 0.4 MG TAB SUBLINGUAL PRN (21:56)
[2018-01-24] MEDS: PRIMIDONE 50 MG TAB PO SCH (22:41)
[2018-01-25 01:33] LABS: Calcium 8.9 mg/dL (8.4-10.2); Potassium 5.9 mmol/L (3.5-5.1)
[2018-01-25 03:19] LABS: Creatine Kinase 42 U/L (30-135)
[2018-01-25 03:32] LABS: Creatine Kinase MB 0.5 ng/mL (0.0-2.4); Troponin I <0.012 ng/mL (0.000-0.034)
[2018-01-25] MEDS ORDERED: LEVOTHYROXINE 112 MCG TAB PO SCH (06:30)
[2018-01-25 08:51] VITALS: RESP 18
[2018-01-25] MEDS ORDERED: SODIUM POLYSTYRENE SULFONATE 15 GM/60 ML BOTTLE PO STA (08:54)
[2018-01-25] MEDS ORDERED: FAMOTIDINE 20 MG TAB PO SCH (09:00)
[2018-01-25] MEDS ORDERED: METOPROLOL TARTRATE 25 MG TAB PO SCH (09:00)
[2018-01-25 09:28] LABS: Basophils % (A) 1 %; Eosinophils # (A) 0.1 k/uL (0-0.7); Eosinophils % (A) 4 %; HGB 10.8 gm/dL (11.4-16.0); Lymphocytes # (A) 0.8 k/uL (1.0-4.8); Lymphocytes % (A) 26 %; MCH 31.9 pg (25.0-35.0); MCHC 32.7 g/dL (31.0-37.0); MCV 97.4 fL (80.0-100.0); Mean Platelet Volume 8.7; Monocytes # (A) 0.2 k/uL (0-1.0); Monocytes % (A) 7 %; Neutrophils # (A) 1.9 k/uL (1.3-7.7); Neutrophils % (A) 58 %; Platelet Count 139 k/uL (150-450); RBC 3.38 m/uL (3.80-5.40); RDW 12.7 % (11.5-15.5); WBC 3.2 k/uL (3.8-10.6)
[2018-01-25 09:33] LABS: INR 1.3 (<1.2); Prothrombin Time 12.2 sec (9.0-12.0)
[2018-01-25 09:44] LABS: ALT 30 U/L (9-52); AST 30 U/L (14-36); Albumin 3.5 g/dL (3.5-5.0); Alkaline Phosphatase 77 U/L (38-126); Anion Gap 5 mmol/L; Blood Urea Nitrogen 27 mg/dL (7-17); Carbon Dioxide 27 mmol/L (22-30); Chloride 108 mmol/L (98-107); Glucose 92 mg/dL (74-99); Potassium 4.9 mmol/L (3.5-5.1); Sodium 140 mmol/L (137-145); Total Bilirubin 0.4 mg/dL (0.2-1.3)
[2018-01-25 11:49] VITALS: BP 153/60; PULSE 69; TEMP 97.7
[2018-01-25] MEDS ORDERED: MOMETASONE FUROATE TOPICAL PRN (12:03)
[2018-01-25] MEDS ORDERED: HYDROcodone/APAP 7.5-325MG 1 EACH TAB PO PRN (12:03)
[2018-01-25] MEDS ORDERED: TRIAMCINOLONE 0.1% CREAM 80 GM TUBE TOPICAL PRN (12:03)
[2018-01-25] MEDS ORDERED: AMMONIUM LACTATE 12% LOTION 225 GM BTL TOPICAL PRN (12:03)
[2018-01-25] MEDS ORDERED: DIPHENOX-ATROP 2.5-0.025 MG 1 EACH TAB PO PRN (12:03)
[2018-01-25] MEDS ORDERED: AZELASTINE 137MCG/SPRAY NASAL PRN (12:03)
[2018-01-25] MEDS: SODIUM CHLORIDE 0.9% 1,000 ML IV SCH (12:05)
[2018-01-25] MEDS: PRIMIDONE 50 MG TAB PO SCH (12:06)
--- NOTE | 2018-01-25 12:17 | P.HPIM ---
History of Present Illness H&P Date: 01/25/18 Chief Complaint: Chest pain This 82-year-old female with a known past medical history of coronary artery disease with previous CABG 4 vessel, atrial fibrillation, hypothyroidism, hyperlipidemia, hypertension, COPD, chronic kidney disease and hypothyroidism. Patient presents to the emergency room with complaints of chest pain. Family yesterday she was sitting in anabaptist service and started having chest pains in the center of her chest. Pain lasted between 15 and 30 minutes. She denies any associated symptoms. Pain did not radiate. She denies any shortness of breath, nausea or vomiting, diaphoresis, any lightheadedness. She also denies any fevers chills or sweats, cough, bowel movement changes or urinary symptoms. She came into the emergency room via ambulance. In symptoms had resolved by the time she got to the emergency room. EKG had shown sinus bradycardia with a heart rate of 59. Troponins were negative 3 sets. She did have elevated potassium level in which she has received Kayexalate for potassium of 5.9. She also had elevated blood pressures on admission. Blood pressures have shown improvement last blood pressures 153/60. Losartan discontinued due to elevated potassium. Cardiology was consulted. Review of Systems Please refer to HPI otherwise unremarkable Past Medical History Past Medical History: Atrial Fibrillation, Asthma, Coronary Artery Disease (CAD) , Cancer, COPD, CVA/TIA, GERD/Reflux, Hyperlipidemia, Hypertension, Osteoarthritis (OA), Thyroid Disorder Additional Past Medical History / Comment(s): PAIN IN LOWER BACK AND GOES DOWN HER LEGS TO HER FEET. Hx spastic colitis, skin ca on face and shoulder, kidney stones. History of Any Multi-Drug Resistant Organisms: None Reported Past Surgical History: Breast Surgery, Cholecystectomy, Coronary Bypass/CABG, Heart Catheterization, Hysterectomy, Orthopedic Surgery Additional Past Surgical History / Comment(s): MULTIPLE SKIN CANCERS BURNED OFF THIS PAST MONTH (05/09).Hip surgery, surgery to repair upper palate, hand surgery. CABG X4 completed in November 6yrs ago. [facility] Procedures. Past Anesthesia/Blood Transfusion Reactions: No Reported Reaction Past Psychological History: No Psychological Hx Reported Additional Psychological History / Comment(s): . Smoking Status: Never smoker Past Alcohol Use History: Rare Past Drug Use History: None Reported - Past Family History Sister(s) Family Medical History: Cancer Additional Family Medical History / Comment(s): breast cancer Father Family Medical History: Cancer Additional Family Medical History / Comment(s): LUNG CANCER Mother Family Medical History: CVA/TIA Medications and Allergies Home Medications Medication Instructions Recorded Confirmed Type Montelukast [Singulair] 10 mg PO HS 04/27/14 01/24/18 History ALPRAZolam [Xanax] 0.5 mg PO BID PRN 01/03/15 01/24/18 History Azelastine HCl [Astepro] 1 spray NASAL BID PRN 01/03/15 01/24/18 History Biotin 5 mg PO DAILY 01/03/15 01/24/18 History Cholecalciferol [Vitamin D3] 2,000 unit PO DAILY 01/03/15 01/24/18 History Diphenox-Atrop 2.5-0.025 mg 1 - 2 tab PO BID PRN 01/03/15 01/24/18 History [Lomotil] Aspirin 81 mg PO Q48H 07/12/15 01/24/18 History Atorvastatin Calcium [Lipitor] 20 mg PO HS 07/12/15 01/24/18 History Losartan Potassium 25 mg PO HS 07/12/15 01/24/18 History Primidone [Mysoline] 50 mg PO TID 07/12/15 01/24/18 History Metoprolol Tartrate [Lopressor] 25 mg PO QAM 02/22/16 01/24/18 History Warfarin [Coumadin] 8 mg PO TUTHSA 02/22/16 01/24/18 History HYDROcodone/APAP 7.5-325MG [[place] 1 tab PO TID PRN 04/24/16 01/24/18 History 7.5-325] Famotidine [Pepcid] 20 mg PO QAM 12/15/16 01/24/18 History Levothyroxine Sodium [Synthroid] 112 mcg PO DAILY 10/03/17 01/24/18 History Temazepam [Restoril] 15 mg PO HS PRN 10/03/17 01/24/18 History Warfarin [Coumadin] 5 mg PO SUMOWEFR 10/03/17 01/24/18 History Albuterol Nebulized [Ventolin 2.5 mg INHALATION RT-BID PRN 01/24/18 01/24/18 History Nebulized] Ammonium Lactate Lotion 1 applic TOPICAL BID PRN 01/24/18 01/24/18 History [Lac-Hydrin 12% Lotion] Betamethasone/Propylene Glyc 1 applic TOPICAL DAILY PRN 01/24/18 01/24/18 History [Betamethasone Dp Aug 0.05% Lot] Colloidal Oatmeal [Eucerin Eczema 1 applic TOPICAL BID PRN 01/24/18 01/24/18 History Relief] Ferrous Sulfate [Feosol] 325 mg PO HS 01/24/18 01/24/18 History Fluorouracil [Efudex] 1 applic TOPICAL DAILY PRN 01/24/18 01/24/18 History Mometasone Furoate 1 applic TOPICAL DAILY PRN 01/24/18 01/24/18 History Allergies Allergy/AdvReac Type Severity Reaction Status Date / Time adhesive Allergy Rash/Hives, Verified 01/24/18 14:34 RIPS SKIN Iodinated Contrast- Oral and Allergy Unknown Verified 01/24/18 14:34 IV Dye [Iodinated Contrast Media - IV Dye] meperidine HCl [From Demerol] Allergy Hallucinati Verified 01/24/18 14:34 ons shellfish derived Allergy Anaphylaxis Verified 01/24/18 14:34 Sulfa (Sulfonamide Allergy Unknown Verified 01/24/18 14:34 Antibiotics) zolpidem tartrate Allergy Hallucinati Verified 01/24/18 14:34 [From Ambien] ons morphine AdvReac Nausea & Verified 01/24/18 14:34 Vomiting & Diarrhea Physical Exam Vitals: Vital Signs Temp Pulse Pulse Pulse Resp BP BP 01/25/18 11:48 97.7 F 69 18 153/60 01/25/18 08:00 97.8 F 66 18 161/78 01/25/18 04:00 98.1 F 70 16 187/85 01/25/18 00:16 98.5 F 67 16 171/89 01/25/18 00:00 98.5 F 85 18 160/70 01/24/18 20:00 97.1 F L 86 17 165/67 01/24/18 17:10 97.1 F L 62 16 160/79 01/24/18 16:49 76 16 170/77 01/24/18 15:22 50 L 16 147/67 01/24/18 13:59 98.0 F 58 L 20 139/69 Pulse Ox 01/25/18 11:48 97 01/25/18 08:00 99 01/25/18 04:00 96 01/25/18 00:16 98 01/25/18 00:00 95 01/24/18 20:00 96 01/24/18 17:10 99 01/24/18 16:49 100 01/24/18 15:22 100 01/24/18 13:59 100 Intake and Output 01/24/18 01/25/18 01/25/18 22:59 06:59 14:59 Intake Total 100 Balance 100 Intake: Oral 100 Other: Voiding Method Toilet Toilet Toilet # Voids 1 1 Weight 55.792 kg 55.792 kg Patient Weight 01/26/18 06:59 Weight 55.792 kg Head normocephalic Neck supple Lungs clear to auscultation bilaterally no wheezing or crackles Heart regular rate and rhythm S1-S2, no rub or gallop. Tenderness with palpation of the chest wall Abdomen is soft nontender nondistended positive bowel sounds no hepatosplenomegaly Extremities no edema Neuro alert and orientated to 3 Results CBC & Chem 7: 01/25/18 08:55 01/25/18 08:55 Labs: Abnormal Lab Results - Last 24 Hours (Table) 01/24/18 01/24/18 01/24/18 Range/Units 14:10 14:10 14:10 WBC (3.8-10.6) k/uL RBC 3.75 L (3.80-5.40) m/uL Hgb (11.4-16.0) gm/dL Hct (34.0-46.0) % Plt Count (150-450) k/uL Lymphocytes # (1.0-4.8) k/uL PT 14.0 H (9.0-12.0) sec INR 1.5 H (<1.2) Potassium 5.7 H (3.5-5.1) mmol/L Chloride (98-107) mmol/L BUN 36 H (7-17) mg/dL Creatinine 1.44 H (0.52-1.04) mg/dL Glucose 114 H (74-99) mg/dL Total Protein (6.3-8.2) g/dL 01/25/18 01/25/18 01/25/18 Range/Units 00:55 08:55 08:55 WBC 3.2 L (3.8-10.6) k/uL RBC 3.38 L (3.80-5.40) m/uL Hgb 10.8 L (11.4-16.0) gm/dL Hct 33.0 L (34.0-46.0) % Plt Count 139 L (150-450) k/uL Lymphocytes # 0.8 L (1.0-4.8) k/uL PT (9.0-12.0) sec INR (<1.2) Potassium 5.9 H (3.5-5.1) mmol/L Chloride 109 H 108 H (98-107) mmol/L BUN 35 H 27 H (7-17) mg/dL Creatinine 1.10 H 1.05 H (0.52-1.04) mg/dL Glucose (74-99) mg/dL Total Protein 6.0 L (6.3-8.2) g/dL 01/25/18 Range/Units 09:07 WBC (3.8-10.6) k/uL RBC (3.80-5.40) m/uL Hgb (11.4-16.0) gm/dL Hct (34.0-46.0) % Plt Count (150-450) k/uL Lymphocytes # (1.0-4.8) k/uL PT 12.2 H (9.0-12.0) sec INR 1.3 H (<1.2) Potassium (3.5-5.1) mmol/L Chloride (98-107) mmol/L BUN (7-17) mg/dL Creatinine (0.52-1.04) mg/dL Glucose (74-99) mg/dL Total Protein (6.3-8.2) g/dL Thrombosis Risk Factor Assmnt - Choose All That Apply Any of the Below Risk Factors Present?: No Other Risk Factors: No Each Risk Factor Represents 3 Points: Age 75 years or older Other congenital or acquired thrombophilia - If yes, enter type in comment: No Thrombosis Risk Factor Assessment Total Risk Factor Score: 3 Thrombosis Risk Factor Assessment Level: Very Low Risk Assessment and Plan Assessment: 1. Chest pain: [place] ruled out. Troponins are negative 3 sets. EKG shows a sinus bradycardia with a heart rate of 59. Patient seen and examined by cardiology. 2. History of coronary artery disease and previous CABG 3. History of paroxysmal atrial fibrillation: On Coumadin for anticoagulation. INR subtherapeutic at 1.3 4. Chronic kidney disease, stage III. Creatinine at baseline 5. Esssential hypertension with evidence of accelerated hypertension on admission 6. Hyperkalemia now resolved. Repeat potassium of 4.9. Possibly related to the losartan which was discontinued by cardiology 7. Hyperlipidemia continue statin 8. Hypothyroidism continue Synthroid Anticipate discharge later this afternoon. Time with Patient: Greater than 30 (Greater than 50% of the total time spent in counseling and coordination of care. I performed an examination of the patient and discussed their management with the physician Window Systems Administrator. I have reviewed the Physician Window Systems Administrator's notes and agree with the documented findings and plan of care)
[2018-01-25] MEDS ORDERED: amLODIPine 5 MG TAB PO SCH (12:45)
--- NOTE | 2018-01-25 12:45 | P.CRDCN ---
History of Present Illness Consult date: 01/25/18 Consult reason: chest pain History of present illness: Mrs. Suárez is a pleasant 82-year-old female past medical history significant for paroxysmal atrial fibrillation, hypertension, hypothyroidism and coronary artery bypass surgery in 2011. She has a NAILS to the LAD, SVG to OM1 and circumflex and reverse SVG to occluded distal RCA. She also had a maze procedure and amputation of left atrial appendage. She follows with Dr. CHITO Segovia in the office. We've been asked to see her in consultation for chest pain. She states yesterday while she was in yarsanism she experienced a sharp midsternal chest pain. She denies associated shortness of breath, dizziness, palpitations, diaphoresis, nausea or vomiting. The pain did not move anywhere it stays localized to the center of the chest. She can specify no hearing or alleviating factors. The pain persisted for approximately 15-30 minutes. She has had no further episodes of chest pain since being in the hospital. Telemetry tracings been unremarkable. She is maintaining sinus mechanism. Potassium on arrival was 5. 7 repeat 5.9. She currently takes losartan 25 mg daily, Lopressor 25 mg daily, Coumadin, Lipitor and aspirin. EKG on arrival reveals sinus mechanism with no acute ST or T-wave abnormalities. Chest x-ray negative for an acute cardiopulmonary process. Cardiac enzymes negative 4, creatinine 1.1, potassium 5.9. Most recent echocardiogram performed January 2015 which reveals preserved left ventricular systolic function with ejection fraction 50% with inferior posterior hypokinesia. Review of Systems At the time of my exam: CONSTITUTIONAL: Denies fever. Denies chills. EYES: Denies blurred vision. Denies vision changes. Denies eye pain. EARS, NOSE, MOUTH & THROAT: Denies headache. Denies sore throat. Denies ear pain. CARDIOVASCULAR: Denies chest pain. Denies shortness of breath. Denies orthopnea. Denies PND. Denies palpitations. RESPIRATORY: Denies cough. GASTROINTESTINAL: Denies abdominal pain. Denies diarrhea. Denies constipation. Denies nausea. Denies vomiting. MUSCULOSKELETAL: Denies myalgias. INTEGUMENTARY: Denies pruitis. Denies rash. NEUROLOGIC: Denies numbness. Denies tingling. Denies weakness. PSYCHIATRIC: Denies anxiety. Denies depression. ENDOCRINE: Denies fatigue. Denies weight change. Denies polydipsia. Denies polyurina. GENITOURINARY: Denies burning, hematuria or urgency with micturation. HEMATOLOGIC: Denies history of anemia. Denies bleeding. Past Medical History Past Medical History: Atrial Fibrillation, Asthma, Coronary Artery Disease (CAD) , Cancer, COPD, CVA/TIA, GERD/Reflux, Hyperlipidemia, Hypertension, Osteoarthritis (OA), Thyroid Disorder Additional Past Medical History / Comment(s): PAIN IN LOWER BACK AND GOES DOWN HER LEGS TO HER FEET. Hx spastic colitis, skin ca on face and shoulder, kidney stones. History of Any Multi-Drug Resistant Organisms: None Reported Past Surgical History: Breast Surgery, Cholecystectomy, Coronary Bypass/CABG, Heart Catheterization, Hysterectomy, Orthopedic Surgery Additional Past Surgical History / Comment(s): MULTIPLE SKIN CANCERS BURNED OFF THIS PAST MONTH (05/09).Hip surgery, surgery to repair upper palate, hand surgery. CABG X4 completed in November 6yrs ago. [facility] Procedures. Past Anesthesia/Blood Transfusion Reactions: No Reported Reaction Past Psychological History: No Psychological Hx Reported Additional Psychological History / Comment(s): . Smoking Status: Never smoker Past Alcohol Use History: Rare Past Drug Use History: None Reported - Past Family History Sister(s) Family Medical History: Cancer Additional Family Medical History / Comment(s): breast cancer Father Family Medical History: Cancer Additional Family Medical History / Comment(s): LUNG CANCER Mother Family Medical History: CVA/TIA Medications and Allergies Home Medications Medication Instructions Recorded Confirmed Type Montelukast [Singulair] 10 mg PO HS 04/27/14 01/24/18 History ALPRAZolam [Xanax] 0.5 mg PO BID PRN 01/03/15 01/24/18 History Azelastine HCl [Astepro] 1 spray NASAL BID PRN 01/03/15 01/24/18 History Biotin 5 mg PO DAILY 01/03/15 01/24/18 History Cholecalciferol [Vitamin D3] 2,000 unit PO DAILY 01/03/15 01/24/18 History Diphenox-Atrop 2.5-0.025 mg 1 - 2 tab PO BID PRN 01/03/15 01/24/18 History [Lomotil] Aspirin 81 mg PO Q48H 07/12/15 01/24/18 History Atorvastatin Calcium [Lipitor] 20 mg PO HS 07/12/15 01/24/18 History Losartan Potassium 25 mg PO HS 07/12/15 01/24/18 History Primidone [Mysoline] 50 mg PO TID 07/12/15 01/24/18 History Metoprolol Tartrate [Lopressor] 25 mg PO QAM 02/22/16 01/24/18 History Warfarin [Coumadin] 8 mg PO TUTHSA 02/22/16 01/24/18 History HYDROcodone/APAP 7.5-325MG [[place] 1 tab PO TID PRN 04/24/16 01/24/18 History 7.5-325] Famotidine [Pepcid] 20 mg PO QAM 12/15/16 01/24/18 History Levothyroxine Sodium [Synthroid] 112 mcg PO DAILY 10/03/17 01/24/18 History Temazepam [Restoril] 15 mg PO HS PRN 10/03/17 01/24/18 History Warfarin [Coumadin] 5 mg PO SUMOWEFR 10/03/17 01/24/18 History Albuterol Nebulized [Ventolin 2.5 mg INHALATION RT-BID PRN 01/24/18 01/24/18 History Nebulized] Ammonium Lactate Lotion 1 applic TOPICAL BID PRN 01/24/18 01/24/18 History [Lac-Hydrin 12% Lotion] Betamethasone/Propylene Glyc 1 applic TOPICAL DAILY PRN 01/24/18 01/24/18 History [Betamethasone Dp Aug 0.05% Lot] Colloidal Oatmeal [Eucerin Eczema 1 applic TOPICAL BID PRN 01/24/18 01/24/18 History Relief] Ferrous Sulfate [Feosol] 325 mg PO HS 01/24/18 01/24/18 History Fluorouracil [Efudex] 1 applic TOPICAL DAILY PRN 01/24/18 01/24/18 History Mometasone Furoate 1 applic TOPICAL DAILY PRN 01/24/18 01/24/18 History Allergies Allergy/AdvReac Type Severity Reaction Status Date / Time adhesive Allergy Rash/Hives, Verified 01/24/18 14:34 RIPS SKIN Iodinated Contrast- Oral and Allergy Unknown Verified 01/24/18 14:34 IV Dye [Iodinated Contrast Media - IV Dye] meperidine HCl [From Demerol] Allergy Hallucinati Verified 01/24/18 14:34 ons shellfish derived Allergy Anaphylaxis Verified 01/24/18 14:34 Sulfa (Sulfonamide Allergy Unknown Verified 01/24/18 14:34 Antibiotics) zolpidem tartrate Allergy Hallucinati Verified 01/24/18 14:34 [From Ambien] ons morphine AdvReac Nausea & Verified 01/24/18 14:34 Vomiting & Diarrhea Physical Exam Vitals: Vital Signs Temp Pulse Pulse Pulse Resp BP BP 01/25/18 08:00 97.8 F 66 18 161/78 01/25/18 04:00 98.1 F 70 16 187/85 01/25/18 00:16 98.5 F 67 16 171/89 01/25/18 00:00 98.5 F 85 18 160/70 01/24/18 20:00 97.1 F L 86 17 165/67 01/24/18 17:10 97.1 F L 62 16 160/79 01/24/18 16:49 76 16 170/77 01/24/18 15:22 50 L 16 147/67 01/24/18 13:59 98.0 F 58 L 20 139/69 Pulse Ox 01/25/18 08:00 99 01/25/18 04:00 96 01/25/18 00:16 98 01/25/18 00:00 95 01/24/18 20:00 96 01/24/18 17:10 99 01/24/18 16:49 100 01/24/18 15:22 100 01/24/18 13:59 100 Intake and Output 01/24/18 01/25/18 01/25/18 22:59 06:59 14:59 Intake Total 100 Balance 100 Intake: Oral 100 Other: Voiding Method Toilet Toilet Toilet # Voids 1 1 Weight 55.792 kg Blood pressure 161/78 heart rate 66 afebrile GENERAL: This is a 82-year-old female in no apparent distress at the time of my examination. HEENT: Head is atraumatic, normocephalic. Pupils are equal, round. Sclerae anicteric. Conjunctivae are clear. Mucous membranes of the mouth are moist. Neck is supple. There is no jugular venous distention. No carotid bruit is heard. LUNGS: Clear to auscultation no wheezes, rales or rhonchi. No chest wall tenderness is noted on palpation or with deep breathing. HEART: Regular rate and rhythm without murmurs, rubs or gallops. S1 and S2 heard. ABDOMEN: Soft, nontender. Bowel sounds are heard. No organomegaly noted. EXTREMITIES: No evidence of peripheral edema and no calf tenderness noted. VASCULAR: Radial and dorsalis pedis pulses palpated, no evidence of clubbing. NEUROLOGIC: Patient is awake, alert and oriented x3. Results 01/25/18 08:55 01/25/18 08:55 Cardiac Enzymes 01/24/18 01/24/18 01/24/18 Range/Units 14:10 14:10 18:46 AST 33 (14-36) U/L CK-MB (CK-2) <0.2 0.4 (0.0-2.4) ng/mL Troponin I <0.012 <0.012 (0.000-0.034) ng/mL 01/25/18 01/25/18 Range/Units 00:55 02:34 AST (14-36) U/L CK-MB (CK-2) 0.5 (0.0-2.4) ng/mL Troponin I <0.012 <0.012 (0.000-0.034) ng/mL Coagulation 01/24/18 01/25/18 Range/Units 14:10 09:07 PT 14.0 H 12.2 H (9.0-12.0) sec APTT 25.1 (22.0-30.0) sec CBC 01/24/18 Range/Units 14:10 WBC 4.3 (3.8-10.6) k/uL RBC 3.75 L (3.80-5.40) m/uL Hgb 11.7 (11.4-16.0) gm/dL Hct 37.2 (34.0-46.0) % Plt Count 168 (150-450) k/uL Comprehensive Metabolic Panel 01/24/18 01/25/18 Range/Units 14:10 00:55 Sodium 143 140 (137-145) mmol/L Potassium 5.7 H 5.9 H (3.5-5.1) mmol/L Chloride 107 109 H (98-107) mmol/L Carbon Dioxide 27 25 (22-30) mmol/L BUN 36 H 35 H (7-17) mg/dL Creatinine 1.44 H 1.10 H (0.52-1.04) mg/dL Glucose 114 H 89 (74-99) mg/dL Calcium 9.0 8.9 (8.4-10.2) mg/dL AST 33 (14-36) U/L ALT 37 (9-52) U/L Alkaline Phosphatase 77 (38-126) U/L Total Protein 6.4 (6.3-8.2) g/dL Albumin 3.8 (3.5-5.0) g/dL Current Medications Generic Name Dose Route Start Last Admin Trade Name Freq PRN Reason Stop Dose Admin Acetaminophen 650 mg 01/24/18 16:12 Tylenol Tab PO Q6HR PRN Mild Pain or Fever > 100.5 Albuterol Sulfate 2.5 mg 01/24/18 16:14 Ventolin Nebulized INHALATION RT-BID PRN Shortness Of Breath Alprazolam 0.5 mg 01/24/18 16:14 Xanax PO BID PRN Anxiety Aspirin 81 mg 01/24/18 17:00 01/24/18 17:57 Aspirin PO 81 mg Q48H ROMAIN Administration Atorvastatin Calcium 20 mg 01/24/18 21:00 01/24/18 20:57 Lipitor PO 20 mg HS ROMAIN Administration Famotidine 20 mg 01/25/18 09:00 Pepcid PO QAM ROMAIN Sodium Chloride 1,000 mls @ 50 mls/hr 01/24/18 16:00 01/24/18 16:49 Saline 0.9% IV 50 mls/hr .Q20H ROMAIN Administration Levothyroxine Sodium 112 mcg 01/25/18 06:30 01/25/18 05:23 Synthroid PO 112 mcg 0630 ROMAIN Administration Losartan Potassium 25 mg 01/24/18 21:00 01/24/18 20:57 Cozaar PO 25 mg HS ROMAIN Administration Metoprolol Tartrate 25 mg 01/25/18 09:00 Lopressor PO QAM ROMAIN Naloxone HCl 0.2 mg 01/24/18 16:12 Narcan IV Q2M PRN Opioid Reversal Nitroglycerin 0.4 mg 01/24/18 21:56 Nitrostat SUBLINGUAL Q5M PRN Chest Pain Primidone 50 mg 01/24/18 22:00 01/24/18 22:41 Mysoline PO 50 mg TID ROMAIN Administration Temazepam 15 mg 01/24/18 21:55 Restoril PO HS PRN Insomnia Warfarin Sodium 8 mg 01/26/18 18:00 Coumadin PO TUTHSA ROMAIN Warfarin Sodium 5 mg 01/24/18 18:00 01/24/18 17:57 Coumadin PO 5 mg SUMOWEFR ROMAIN Administration Intake and Output 01/24/18 01/25/18 01/25/18 22:59 06:59 14:59 Intake Total 100 Balance 100 Intake: Oral 100 Other: Voiding Method Toilet Toilet Toilet # Voids 1 1 Weight 55.792 kg 01/24/18 14:10 01/25/18 00:55 Assessment and Plan Assessment: ASSESSMENT 1. Chest pain, atypical. Acute coronary event has been ruled out with negative cardiac enzymes and no EKG evidence of ischemia. 2. Paroxysmal atrial fibrillation, currently maintaining sinus mechanism on long-term anticoagulation with Coumadin. INR is therapeutic. 3. Coronary artery disease, status post bypass grafting. 4. Dyslipidemia maintained on atorvastatin 5. Hypertension 6. Hyperkalemia PLAN Obtain 2-D echocardiogram and Doppler study to assess cardiac structure and function. Discontinue losartan secondary to hyperkalemia. Initiate amlodipine 5 mg daily. Kayexalate has been given, repeat potassium this afternoon. Continue with telemetry monitoring to rule out an acute arrhythmia. Further recommendations will be based upon clinical course. Thank you kindly for this consultation. Nurse Practitioner note has been reviewed, I agree with a documented findings and plan of care. Patient was seen and examined.
[2018-01-25] MEDS ORDERED: WARFARIN 7.5 MG TAB PO SCH (14:30)
--- NOTE | 2018-01-25 14:30 | P.DS ---
Providers Date of admission: 01/24/18 16:12 Expected date of discharge: 01/25/18 Attending physician: Fabián Finley Consults: 01/24/18 16:13 Consult Physician Routine Consulting Provider: Shane Shaikh Consult Reason/Comments: CP Do you want consulting provider notified?: Yes Primary care physician: Fabián Tushar [facility] Course: Discharge diagnosis 1. Chest pain: IN ruled out. Troponins are negative 3 sets. EKG shows a sinus bradycardia with a heart rate of 59. Patient seen and examined by cardiology. Cardiology is cleared patient for discharge. Echocardiogram results are pending. Follow-up with cardiology outpatient 2. History of coronary artery disease and previous CABG 3. History of paroxysmal atrial fibrillation: On Coumadin for anticoagulation. INR subtherapeutic at 1.3 4. Chronic kidney disease, stage III. Creatinine at baseline 5. Esssential hypertension with evidence of accelerated hypertension on admission 6. Hyperkalemia now resolved. Repeat potassium of 4.9. Possibly related to the losartan which was discontinued by cardiology 7. Hyperlipidemia continue statin 8. Hypothyroidism continue Synthroid Hospital course This 82-year-old female with a known past medical history of coronary artery disease with previous CABG 4 vessel, atrial fibrillation, hypothyroidism, hyperlipidemia, hypertension, COPD, chronic kidney disease and hypothyroidism. Patient presents to the emergency room with complaints of chest pain. Family yesterday she was sitting in [employer] service and started having chest pains in the center of her chest. Pain lasted between 15 and 30 minutes. She denies any associated symptoms. Pain did not radiate. She denies any shortness of breath, nausea or vomiting, diaphoresis, any lightheadedness. She also denies any fevers chills or sweats, cough, bowel movement changes or urinary symptoms. She came into the emergency room via ambulance. In symptoms had resolved by the time she got to the emergency room. EKG had shown sinus bradycardia with a heart rate of 59. Troponins were negative 3 sets. She did have elevated potassium level in which she has received Kayexalate for potassium of 5.9. She also had elevated blood pressures on admission. Blood pressures have shown improvement last blood pressures 153/60. Losartan discontinued due to elevated potassium. Cardiology was consulted. Patient seen evaluated by cardiology. Acute coronary syndrome ruled out. Cardiology did discontinue losartan because of the hyperkalemia. Patient's potassium level normalized at discharge. Cardiology did as Norvasc 5 mg daily to help with blood pressure control. While patient follow-up with Dr. Finley and cardiology outpatient setting. Please note that her INR is subtherapeutic at 1.3. She will receive Coumadin 7.5 mg before discharge. And then resume her home dose of Coumadin starting tomorrow. We'll follow-up with PT/INR in office. Patient is medically stable for discharge. Chest pain has completely resolved and not reoccurred. Patient cleared by cardiology for discharge. I performed an examination of the patient and discussed their management with the physician Claims Assistant. I have reviewed the Physician Claims Assistant's notes and agree with the documented findings and plan of care Patient Condition at Discharge: Stable Plan - Discharge Summary Discharge Rx Participant: No New Discharge Prescriptions: New amLODIPine [Norvasc] 5 mg PO DAILY #30 tab Nitroglycerin Sl Tabs [Nitrostat] 0.4 mg SUBLINGUAL Q5M PRN #15 tab PRN Reason: Chest Pain Continue Montelukast [Singulair] 10 mg PO HS Diphenox-Atrop 2.5-0.025 mg [Lomotil] 1 - 2 tab PO BID PRN PRN Reason: Diarrhea ALPRAZolam [Xanax] 0.5 mg PO BID PRN PRN Reason: Anxiety Cholecalciferol [Vitamin D3] 2,000 unit PO DAILY Biotin 5 mg PO DAILY Azelastine HCl [Astepro] 1 spray NASAL BID PRN PRN Reason: Nasal Congestion Atorvastatin Calcium [Lipitor] 20 mg PO HS Primidone [Mysoline] 50 mg PO TID Aspirin 81 mg PO Q48H Metoprolol Tartrate [Lopressor] 25 mg PO QAM Warfarin [Coumadin] 8 mg PO TUTHSA HYDROcodone/APAP 7.5-325MG [Stephan 7.5-325] 1 tab PO TID PRN PRN Reason: Pain Famotidine [Pepcid] 20 mg PO QAM Warfarin [Coumadin] 5 mg PO SUMOWEFR Temazepam [Restoril] 15 mg PO HS PRN PRN Reason: Insomnia Levothyroxine Sodium [Synthroid] 112 mcg PO DAILY Ferrous Sulfate [Iron (65 MG Elemental)] 325 mg PO HS Fluorouracil [Efudex] 1 applic TOPICAL DAILY PRN PRN Reason: Dry Skin Betamethasone/Propylene Glyc [Betamethasone Dp Aug 0.05% Lot] 1 applic TOPICAL DAILY PRN PRN Reason: Skin Irritation Ammonium Lactate Lotion [Lac-Hydrin 12% Lotion] 1 applic TOPICAL BID PRN PRN Reason: Rash Colloidal Oatmeal [Eucerin Eczema Relief] 1 applic TOPICAL BID PRN PRN Reason: Dry Skin Albuterol Nebulized [Ventolin Nebulized] 2.5 mg INHALATION RT-BID PRN PRN Reason: Shortness Of Breath Mometasone Furoate 1 applic TOPICAL DAILY PRN PRN Reason: Skin Irritation Discontinued Losartan Potassium 25 mg PO HS Discharge Medication List Montelukast [Singulair] 10 mg PO HS 04/27/14 [History] ALPRAZolam [Xanax] 0.5 mg PO BID PRN 01/03/15 [History] Azelastine HCl [Astepro] 1 spray NASAL BID PRN 01/03/15 [History] Biotin 5 mg PO DAILY 01/03/15 [History] Cholecalciferol [Vitamin D3] 2,000 unit PO DAILY 01/03/15 [History] Diphenox-Atrop 2.5-0.025 mg [Lomotil] 1 - 2 tab PO BID PRN 01/03/15 [History] Aspirin 81 mg PO Q48H 07/12/15 [History] Atorvastatin Calcium [Lipitor] 20 mg PO HS 07/12/15 [History] Primidone [Mysoline] 50 mg PO TID 07/12/15 [History] Metoprolol Tartrate [Lopressor] 25 mg PO QAM 02/22/16 [History] Warfarin [Coumadin] 8 mg PO TUTHSA 02/22/16 [History] HYDROcodone/APAP 7.5-325MG [Stephan 7.5-325] 1 tab PO TID PRN 04/24/16 [History] Famotidine [Pepcid] 20 mg PO QAM 12/15/16 [History] Levothyroxine Sodium [Synthroid] 112 mcg PO DAILY 10/03/17 [History] Temazepam [Restoril] 15 mg PO HS PRN 10/03/17 [History] Warfarin [Coumadin] 5 mg PO SUMOWEFR 10/03/17 [History] Albuterol Nebulized [Ventolin Nebulized] 2.5 mg INHALATION RT-BID PRN 01/24/18 [ History] Ammonium Lactate Lotion [Lac-Hydrin 12% Lotion] 1 applic TOPICAL BID PRN [History] Betamethasone/Propylene Glyc [Betamethasone Dp Aug 0.05% Lot] 1 applic TOPICAL DAILY PRN 01/24/18 [History] Colloidal Oatmeal [Eucerin Eczema Relief] 1 applic TOPICAL BID PRN 01/24/18 [ History] Ferrous Sulfate [Iron (65 MG Elemental)] 325 mg PO HS 01/24/18 [History] Fluorouracil [Efudex] 1 applic TOPICAL DAILY PRN 01/24/18 [History] Mometasone Furoate 1 applic TOPICAL DAILY PRN 01/24/18 [History] Nitroglycerin Sl Tabs [Nitrostat] 0.4 mg SUBLINGUAL Q5M PRN #15 tab 01/25/18 [Rx ] amLODIPine [Norvasc] 5 mg PO DAILY #30 tab 01/25/18 [Rx] Follow up Appointment(s)/Referral(s): Nasim Segovia MD [STAFF PHYSICIAN] - 2 Weeks Fabián Finley MD [Primary Care Provider] - 1 Week Activity/Diet/Wound Care/Special Instructions: Diet: cardiac Activity: as tolerated patient will receive coumadin 7.5mg po now before discharge. Restart her home dose of coumadin tomorrow. Discharge Disposition: HOME SELF-CARE
--- NOTE | 2018-01-25 19:06 | ECHOF ---
Referral Reason:chest pain MEASUREMENTS -------- HEIGHT: 152.4 cm WEIGHT: 55.8 kg BP: 161/78 RVIDd: 2.2 cm (< 3.3) IVSd: 0.9 cm (0.6 - 1.1) LVIDd: 4.0 cm (3.9 - 5.3) LVPWd: 0.9 cm (0.6 - 1.1) IVSs: 1.1 cm LVIDs: 2.8 cm LVPWs: 1.3 cm LAESV Index (A-L): 27.76 ml/m Ao Diam: 2.8 cm (2.0 - 3.7) AV Cusp: 1.5 cm (1.5 - 2.6) LA Diam: 3.1 cm (2.7 - 3.8) EPSS: 0.5 cm MV E Thanh: 1.12 m/s MV DecT: 210 ms MV A Thanh: 0.89 m/s MV E/A Ratio: 1.26 AV maxP.34 mmHg AV meanP.00 mmHg AR PHT: 393 ms RAP: 5.00 mmHg RVSP: 42.76 mmHg MV EF SLOPE: 92.32 mm/s (70 - 150) MV EXCURSION: 1.52 cm (> 18.000) FINDINGS -------- Sinus rhythm. This was a technically adequate study. The left ventricular size is normal. Left ventricular wall thickness is normal. Overall left vent ricular systolic function is normal with, an EF between 55 - 60 %. The right ventricle is normal in size and function. Normal LA size by volume 22+/-6 ml/m2. RA appears enlarged. Aortic valve is trileaflet and is mildly thickened. There is azjn-pd-fxkzvhwt aortic regurgitation. There is no evidence of aortic stenosis. The mitral valve leaflets are mildly thickened. Mild mitral annular calcification present. There is trace to mild mitral regurgitation. Xnde-yn-jlmftczu tricuspid regurgitation present. There is mild pulmonary hypertension. The right ventricular systolic pressure, as measured by Doppler, is 42.76mmHg. The pulmonic valve is normal. The aortic root size is normal. IVC Not well visulized. The pericardium is normal. There is no pericardial effusion. CONCLUSIONS -------- 1. Sinus rhythm. 2. This was a technically adequate study. 3. The left ventricular size is normal. 4. Left ventricular wall thickness is normal. 5. Overall left ventricular systolic function is normal with, an EF between 55 - 60 %. 6. Normal LA size by volume 22+/-6 ml/m2. 7. RA appears enlarged. 8. Aortic valve is trileaflet and is mildly thickened. 9. There is xvdr-qn-vyaxzsds aortic regurgitation. 10. The mitral valve leaflets are mildly thickened. 11. Mild mitral annular calcification present. 12. There is trace to mild mitral regurgitation. 13. Ukpl-qp-wdeyonlq tricuspid regurgitation present. 14. There is mild pulmonary hypertension. 15. The right ventricular systolic pressure, as measured by Doppler, is 42.76mmHg. 16. The aortic root size is normal. 17. IVC Not well visulized. 18. There is no pericardial effusion. CAMPUS POLICE OFFICER: Leo Zhou RDCS
[2018-01-25] MEDS ORDERED: MONTELUKAST 10 MG TAB PO SCH (21:00)
[2018-01-25] MEDS ORDERED: FERROUS SULFATE 325 MG TAB PO SCH (21:00)
[2018-01-26] MEDS ORDERED: CHOLECALCIFEROL 1,000 UNIT TAB PO SCH (12:00)
[2018-01-26] MEDS ORDERED: WARFARIN 2 MG TAB PO SCH (18:00)
[2018-01-27] MEDS ORDERED: WARFARIN 5 MG TAB PO SCH (18:00)
== END 2018-01-25 15:12 | disposition home or self-care (01) ==
LOC: EC 13:52 → 6SEL 16:12 → 3SUR 01-25 00:05 → 3OBS 01-25 07:58
PROVIDERS: ADMIT Internal Medicine; ATTEND Internal Medicine
DX: R07.89 Other chest pain (principal); R07.2 Precordial pain; I48.0 Paroxysmal atrial fibrillation; Z79.01 Long term (current) use of anticoagulants; I25.10 Atherosclerotic heart disease of native coronary artery without angina pectoris; Z95.1 Presence of aortocoronary bypass graft; E87.5 Hyperkalemia; I12.9 Hypertensive chronic kidney disease with stage 1 through stage 4 chronic kidney disease, or unspecified chronic kidney disease; N18.3 Chronic kidney disease, stage 3 (moderate); J44.9 Chronic obstructive pulmonary disease, unspecified; E03.9 Hypothyroidism, unspecified; K21.9 Gastro-esophageal reflux disease without esophagitis; E78.5 Hyperlipidemia, unspecified; M19.90 Unspecified osteoarthritis, unspecified site; K58.9 Irritable bowel syndrome, unspecified; M54.5 Low back pain; Z79.899 Other long term (current) drug therapy; Z79.82 Long term (current) use of aspirin; Z91.041 Radiographic dye allergy status; Z88.5 Allergy status to narcotic agent; Z91.013 Allergy to seafood; Z88.2 Allergy status to sulfonamides; Z88.8 Allergy status to other drugs, medicaments and biological substances; Z91.048 Other nonmedicinal substance allergy status; Z86.73 Personal history of transient ischemic attack (TIA), and cerebral infarction without residual deficits; Z85.828 Personal history of other malignant neoplasm of skin; Z87.442 Personal history of urinary calculi; Z80.3 Family history of malignant neoplasm of breast; Z80.1 Family history of malignant neoplasm of trachea, bronchus and lung
CPT/HCPCS: 99285; 36415; 93005; 93306; 83880; 80053 ×2; 80048; 82550 ×2; 82553 ×2; 83690; 83735; 84484 ×2; 85025 ×2; 85610 ×2; 85730; 71046; G0378 ×2

== ENCOUNTER 2018-02-22 11:44 | Inpatient (IN) | payer MEDICARE ==
[2018-02-22] MEDS ORDERED: FLUOROURACIL TOPICAL PRN (14:36)
[2018-02-22] MEDS ORDERED: BETAMETHASONE TOPICAL PRN (14:36)
[2018-02-22] MEDS ORDERED: MINERAL OIL-WHITE PETROLATUM 120 GM JAR TOPICAL PRN (14:36)
[2018-02-22] MEDS ORDERED: [UNRECOGNIZED DRUG - OTHER] TOPICAL PRN (14:36)
[2018-02-22] MEDS ORDERED: DIPHENOX-ATROP 2.5-0.025 MG 1 EACH TAB PO PRN (14:36)
[2018-02-22] MEDS ORDERED: TRIAMCINOLONE ACET 0.5% CREAM 15 GM TUBE TOPICAL PRN (14:36)
[2018-02-22] MEDS ORDERED: NITROGLYCERIN SL TABS 0.4 MG TAB SUBLINGUAL PRN (14:36)
[2018-02-22] MEDS ORDERED: MOMETASONE FUROATE TOPICAL PRN (14:36)
[2018-02-22] MEDS ORDERED: TEMAZEPAM 15 MG CAP PO PRN (14:36)
[2018-02-22] MEDS ORDERED: AMMONIUM LACTATE 12% LOTION 225 GM BTL TOPICAL PRN (14:36)
[2018-02-22] MEDS ORDERED: ALPRAZolam 0.5 MG TAB PO PRN (14:36)
[2018-02-22] MEDS ORDERED: PROPYLENE GLYC TOPICAL PRN (14:36)
[2018-02-22] MEDS ORDERED: AZELASTINE 137MCG/SPRAY NASAL PRN (14:36)
[2018-02-22] MEDS ORDERED: ALBUTEROL NEBULIZED 2.5 MG/3 ML INHALATION PRN (14:36)
[2018-02-22 15:16] LABS: INR 3.9 (<1.2); Prothrombin Time 35.3 sec (9.0-12.0)
[2018-02-22 15:19] LABS: Basophils % (A) 1 %; Eosinophils # (A) 0.1 k/uL (0-0.7); Eosinophils % (A) 3 %; HCT 34.3 % (34.0-46.0); HGB 11.4 gm/dL (11.4-16.0); Lymphocytes # (A) 0.7 k/uL (1.0-4.8); Lymphocytes % (A) 18 %; MCH 31.9 pg (25.0-35.0); MCHC 33.1 g/dL (31.0-37.0); MCV 96.3 fL (80.0-100.0); Mean Platelet Volume 8.4; Monocytes # (A) 0.3 k/uL (0-1.0); Monocytes % (A) 8 %; Neutrophils # (A) 2.5 k/uL (1.3-7.7); Neutrophils % (A) 68 %; Platelet Count 148 k/uL (150-450); RBC 3.56 m/uL (3.80-5.40); RDW 13.1 % (11.5-15.5); WBC 3.7 k/uL (3.8-10.6)
--- NOTE | 2018-02-22 15:22 | XR ---
EXAMINATION TYPE: XR chest 2V DATE OF EXAM: 02/22/2018 COMPARISON: 01/24/2018 HISTORY: 83 year-old female shortness of breath TECHNIQUE: Frontal and lateral views FINDINGS: Median sternotomy wires are present with post-CABG clips in the mediastinum. Heart upper limits of no rmal in size. Mild elongation thoracic aorta. Hyperinflation with diffuse interstitial and vascular p rominence. There are small pleural effusions with adjacent atelectasis. Scoliosis. IMPRESSION: Suspect background of COPD. There is new mild CHF with pulmonary vascular congestion. New small pleural effusions with adjacent atelectasis and/or consolidation.
[2018-02-22 15:24] LABS: Albumin 3.6 g/dL (3.5-5.0); Calcium 8.6 mg/dL (8.4-10.2); Potassium 4.6 mmol/L (3.5-5.1); Total Bilirubin 0.2 mg/dL (0.2-1.3); Total Protein 5.9 g/dL (6.3-8.2)
--- NOTE | 2018-02-22 15:43 | US ---
EXAMINATION TYPE: US venous doppler duplex LE BI DATE OF EXAM: 02/22/2018 3:29 PM COMPARISON: US 12/27/2012 CLINICAL HISTORY: leg swelling rule out DVT. SIDE PERFORMED: Bilateral TECHNIQUE: The lower extremity deep venous system is examined utilizing real time linear array sonog dorothy with graded compression, doppler sonography and color-flow sonography. VESSELS IMAGED: External Iliac Vein (EIV) Common Femoral Vein Deep Femoral Vein Greater Saphenous Vein * Femoral Vein Popliteal Vein Small Saphenous Vein * Proximal Calf Veins (* superficial vessels) Grayscale, color doppler, spectral doppler imaging performed of the deep veins of the lower extremiti es. There is normal flow, compressibility, vascular waveforms. Right Leg: Negative for DVT Left Leg: Negative for DVT IMPRESSION: No sonographic evidence of deep venous thrombosis within either lower extremity.
--- NOTE | 2018-02-22 16:02 | P.HPIM ---
History of Present Illness H&P Date: 02/22/18 Chief Complaint: Shortness of breath This is a 83-year-old female with a known past medical history of coronary artery disease with CABG, paroxysmal atrial fibrillation anticoagulated with Coumadin, chronic kidney disease stage III, hypertension, hyperlipidemia, hypothyroidism and generalized anxiety disorder. Patient reports that she's had worsening shortness of breath for the last few days. She reports she had went to her chisel worker's Dr. CHITO Segovia because she was short of breath and having heart palpitations. He added the amiodarone to her regimen of medications since she was in atrial fibrillation. Patient reports she continued to have shortness of breath and went into see Dr. Finley her PCP today. She was then sent directly from the office to the hospital for admission for congestive heart failure exacerbation. Patient reports no previous history of congestive heart failure. Patient reports shortness of breath with lower extremity edema bilaterally. She is unable to lay flat in bed. She does also complain of pain in her legs. Denies any chest pain. Denies any nausea or vomiting. Denies any bowel movement changes or urinary symptoms. Denies any fever chills or sweats. Denies any cough. Patient's last echo was 01/25/2018 showing an EF of 55-60% mild to moderate aortic regurgitation and tricuspid regurgitation and mild pulmonary hypertension. Chest x-ray, EKG, BNP and cardiology consult has been placed. Also will hold patient's Norvasc because she's been hypotensive. The Norvasc also may be contributing to patient's lower extremity edema. Review of Systems Please refer to HPI otherwise unremarkable Past Medical History Past Medical History: Atrial Fibrillation, Asthma, Coronary Artery Disease (CAD) , Cancer, COPD, CVA/TIA, GERD/Reflux, Hyperlipidemia, Hypertension, Osteoarthritis (OA), Thyroid Disorder Additional Past Medical History / Comment(s): PAIN IN LOWER BACK AND GOES DOWN HER LEGS TO HER FEET. Hx spastic colitis, skin ca on face and shoulder, kidney stones. Irritable bowel syndrome History of Any Multi-Drug Resistant Organisms: None Reported Past Surgical History: Breast Surgery, Cholecystectomy, Coronary Bypass/CABG, Heart Catheterization, Hysterectomy, Orthopedic Surgery Additional Past Surgical History / Comment(s): MULTIPLE SKIN CANCERS BURNED OFF THIS PAST MONTH (05/09).Hip surgery, surgery to repair upper palate, hand surgery. CABG X4 completed in November 6yrs ago. [facility] Procedures. Past Anesthesia/Blood Transfusion Reactions: No Reported Reaction Past Psychological History: No Psychological Hx Reported Additional Psychological History / Comment(s): . Smoking Status: Never smoker Past Alcohol Use History: Rare Past Drug Use History: None Reported - Past Family History Sister(s) Family Medical History: Cancer Additional Family Medical History / Comment(s): breast cancer Father Family Medical History: Cancer Additional Family Medical History / Comment(s): LUNG CANCER Mother Family Medical History: CVA/TIA Medications and Allergies Home Medications Medication Instructions Recorded Confirmed Type Montelukast [Singulair] 10 mg PO HS 04/27/14 02/22/18 History ALPRAZolam [Xanax] 0.5 mg PO BID PRN 01/03/15 02/22/18 History Azelastine HCl [Astepro] 1 spray NASAL BID PRN 01/03/15 02/22/18 History Biotin 5 mg PO DAILY 01/03/15 02/22/18 History Cholecalciferol [Vitamin D3] 2,000 unit PO DAILY 01/03/15 02/22/18 History Diphenox-Atrop 2.5-0.025 mg 1 - 2 tab PO BID PRN 01/03/15 02/22/18 History [Lomotil] Aspirin 81 mg PO Q48H 07/12/15 02/22/18 History Atorvastatin Calcium [Lipitor] 20 mg PO HS 07/12/15 02/22/18 History Primidone [Mysoline] 50 mg PO TID 07/12/15 02/22/18 History Metoprolol Tartrate [Lopressor] 25 mg PO QAM 02/22/16 02/22/18 History HYDROcodone/APAP 7.5-325MG [[place] 1 tab PO TID PRN 04/24/16 02/22/18 History 7.5-325] Famotidine [Pepcid] 20 mg PO QAM 12/15/16 02/22/18 History Temazepam [Restoril] 15 mg PO HS PRN 10/03/17 02/22/18 History Warfarin [Coumadin] 5 mg PO HS 10/03/17 02/22/18 History Albuterol Nebulized [Ventolin 2.5 mg INHALATION RT-BID PRN 01/24/18 02/22/18 History Nebulized] Ammonium Lactate Lotion 1 applic TOPICAL BID PRN 01/24/18 02/22/18 History [Lac-Hydrin 12% Lotion] Betamethasone/Propylene Glyc 1 applic TOPICAL DAILY PRN 01/24/18 02/22/18 History [Betamethasone Dp Aug 0.05% Lot] Colloidal Oatmeal [Eucerin Eczema 1 applic TOPICAL BID PRN 01/24/18 02/22/18 History Relief] Ferrous Sulfate [Iron (65 MG 325 mg PO HS 01/24/18 02/22/18 History Elemental)] Fluorouracil [Efudex] 1 applic TOPICAL DAILY PRN 01/24/18 02/22/18 History Mometasone Furoate 1 applic TOPICAL DAILY PRN 01/24/18 02/22/18 History Nitroglycerin Sl Tabs [Nitrostat] 0.4 mg SUBLINGUAL Q5M PRN #15 tab 01/25/1801/10 Rx amLODIPine [Norvasc] 5 mg PO DAILY #30 tab 01/25/18 02/22/18 Rx Amiodarone [Cordarone] 200 mg PO BID 02/22/18 02/22/18 History Diazepam [Valium] 5 mg PO BID PRN 02/22/18 02/22/18 History Levothyroxine Sodium [Synthroid] 100 mcg PO DAILY 02/22/18 02/22/18 History Triamcinolone 0.5% Cream [Kenalog 1 applic TOPICAL BID PRN 02/22/18 02/22/18 History 0.5% Cream] Vitamin E (Dl,Tocopheryl Acet) 400 unit PO DAILY 02/22/18 02/22/18 History [Vitamin E] Allergies Allergy/AdvReac Type Severity Reaction Status Date / Time adhesive Allergy Rash/Hives, Verified 02/22/18 13:24 RIPS SKIN Iodinated Contrast- Oral and Allergy Unknown Verified 02/22/18 13:24 IV Dye [Iodinated Contrast Media - IV Dye] meperidine HCl [From Demerol] Allergy Hallucinati Verified 02/22/18 13:24 ons shellfish derived Allergy Anaphylaxis Verified 02/22/18 13:24 Sulfa (Sulfonamide Allergy Unknown Verified 02/22/18 13:24 Antibiotics) zolpidem tartrate Allergy Hallucinati Verified 02/22/18 13:24 [From Ambien] ons morphine AdvReac Nausea & Verified 02/22/18 13:24 Vomiting & Diarrhea Physical Exam Vitals: Vital Signs Temp Pulse Resp BP Pulse Ox 02/22/18 13:06 97.7 F 90 18 96/65 97 Intake and Output 02/21/18 02/22/18 02/22/18 22:59 06:59 14:59 Other: Weight 58.18 kg Head normocephalic Neck supple Lungs crackles right lower lobe Heart irregular rhythm. A. fib on monitor Abdomen is soft nontender nondistended positive bowel sounds no hepatosplenomegaly Extremities edema present bilaterally with petechiae noted along the shins bilaterally Neuro alert and orientated to 3 Results CBC & Chem 7: 02/22/18 14:50 02/22/18 14:50 Assessment and Plan Assessment: 1. Shortness of breath likely related to an acute CHF exacerbation. Check chest x-ray, BNP, EKG and consult cardiology 2. Acute diastolic CHF exacerbation: Echo from 01/25/2018 shows an EF of 55-60 % with mild to moderate aortic regurgitation and tricuspid regurgitation with mild pulmonary hypertension. Awaiting for repeat BNP level. Patient has been hypotensive. We'll have nursing staff notify cardiology and await their recommendation regarding diuretics 3. History of paroxysmal atrial fibrillation: Patient is currently in atrial fibrillation on the monitor rate controlled. Recently started on amiodarone. Continue metoprolol. Anticoagulated with Coumadin. Awaiting PT/INR results before dosing Coumadin. Cardiology consulted 4. Bilateral lower extremity edema with tenderness in the calves. Will check venous Doppler to rule out DVT. 5. History of coronary artery disease with previous CABG 6. Hypothyroidism resume Synthroid and check TSH level 7. Hyperlipidemia 8. Chronic kidney disease stage III GI prophylaxis Pepcid and DVT prophylaxis Coumadin Time with Patient: Greater than 30 (Greater than 50% of the total time spent in counseling and coordination of care.I performed an examination of the patient and discussed their management with the physician Fire Protection Specialist. I have reviewed the Physician Fire Protection Specialist's notes and agree with the documented findings and plan of care)
[2018-02-22 16:19] LABS: T4, Free (Free Thyroxine) 1.56 ng/dL (0.78-2.19)
[2018-02-22] MEDS: PRIMIDONE 50 MG TAB PO SCH ×2 (17:49→20:33)
[2018-02-22] MEDS ORDERED: FUROSEMIDE 10 MG/ML 2 ML VIAL IV ONE (18:00)
[2018-02-22] MEDS: MONTELUKAST 10 MG TAB PO SCH (20:33)
[2018-02-22] MEDS: FERROUS SULFATE 325 MG TAB PO SCH (20:33)
[2018-02-22] MEDS: ATORVASTATIN 20 MG TAB PO SCH (20:33)
[2018-02-22] MEDS: AMIODARONE 200 MG TAB PO SCH (20:33)
[2018-02-23 06:19] LABS: Basophils % (A) 1 %; Eosinophils # (A) 0.1 k/uL (0-0.7); Eosinophils % (A) 3 %; HCT 30.6 % (34.0-46.0); HGB 10.1 gm/dL (11.4-16.0); Lymphocytes # (A) 0.7 k/uL (1.0-4.8); Lymphocytes % (A) 20 %; MCH 31.2 pg (25.0-35.0); MCV 94.7 fL (80.0-100.0); Mean Platelet Volume 8.8; Monocytes # (A) 0.4 k/uL (0-1.0); Monocytes % (A) 9 %; Neutrophils # (A) 2.4 k/uL (1.3-7.7); Neutrophils % (A) 65 %; Platelet Count 150 k/uL (150-450); RBC 3.23 m/uL (3.80-5.40); RDW 13.2 % (11.5-15.5); WBC 3.7 k/uL (3.8-10.6)
[2018-02-23 06:28] LABS: INR 3.2 (<1.2); Prothrombin Time 28.6 sec (9.0-12.0)
[2018-02-23] MEDS ORDERED: LEVOTHYROXINE 100 MCG TAB PO SCH (06:30)
[2018-02-23 06:34] LABS: Calcium 8.4 mg/dL (8.4-10.2); Potassium 4.8 mmol/L (3.5-5.1); Total Bilirubin 0.2 mg/dL (0.2-1.3); Total Protein 5.2 g/dL (6.3-8.2)
[2018-02-23] MEDS: FAMOTIDINE 20 MG TAB PO SCH (08:33)
[2018-02-23] MEDS: PRIMIDONE 50 MG TAB PO SCH ×3 (08:33→20:19)
[2018-02-23] MEDS: AMIODARONE 200 MG TAB PO SCH ×2 (08:33→20:20)
[2018-02-23] MEDS ORDERED: METOPROLOL TARTRATE 25 MG TAB PO SCH (09:00)
--- NOTE | 2018-02-23 09:22 | P.CRDCN ---
History of Present Illness Consult date: 02/23/18 History of present illness: This is a pleasant 83-year-old female patient who sees Dr. CHITO Segovia in the office as an outpatient with a past medical history significant for coronary artery disease and status post coronary artery bypass grafting in 2011 where she received NAILS to LAD, SVG to OM, and SVG to RCA, as well as history of paroxysmal atrial fibrillation and hypertension and dyslipidemia presented to the hospital complaining of shortness of breath. She was seen in the office by Dr. Segovia few days ago with shortness of breath. At that point it seems that she was in A. fib and amiodarone was added to her medication. She continues to have exertional dyspnea which seems to be worse over the last few days. Also she developed right lower extremities edema. No chest pain or discomfort, heart racing or fluttering, dizziness or lightheadedness, or syncope. The chest x-ray showed findings consistent with heart failure. The BNP came in to be around 3000. The EKG showed A. fib with uncontrolled heart rate. The patient is on oral anticoagulation with Coumadin. Beside that she is on metoprolol into 25 mg by mouth daily. Also she is on amiodarone by mouth. Currently she is in A. fib with heart rate around 120 beats per minutes. Shortness of breath has improved significantly between yesterday and today. No bilateral lower extremities edema. The patient was seen by our service few weeks ago for atypical chest discomfort and at that point she underwent an echocardiogram and that revealed normal LV function with mild pulmonary hypertension. Past Medical History Past Medical History: Atrial Fibrillation, Asthma, Coronary Artery Disease (CAD) , Cancer, COPD, CVA/TIA, GERD/Reflux, Hyperlipidemia, Hypertension, Osteoarthritis (OA), Thyroid Disorder Additional Past Medical History / Comment(s): PAIN IN LOWER BACK AND GOES DOWN HER LEGS TO HER FEET.scoliosis Hx spastic colitis, skin ca on face and shoulder , kidney stones. Irritable bowel syndrome History of Any Multi-Drug Resistant Organisms: None Reported Past Surgical History: Breast Surgery, Cholecystectomy, Coronary Bypass/CABG, Heart Catheterization, Hysterectomy, Orthopedic Surgery Additional Past Surgical History / Comment(s): MULTIPLE SKIN CANCERS BURNED OFF THIS PAST MONTH (05/09).Hip surgery, surgery to repair upper palate, hand surgery. CABG X4 completed in November 6yrs ago. [facility] Procedures. Past Anesthesia/Blood Transfusion Reactions: No Reported Reaction Smoking Status: Never smoker - Past Family History Sister(s) Family Medical History: Cancer Additional Family Medical History / Comment(s): breast cancer Father Family Medical History: Cancer Additional Family Medical History / Comment(s): LUNG CANCER Mother Family Medical History: CVA/TIA Additional Family Medical History / Comment(s): pt stated was adopted parents were alcoholics Medications and Allergies Home Medications Medication Instructions Recorded Confirmed Type Montelukast [Singulair] 10 mg PO HS 04/27/14 02/22/18 History ALPRAZolam [Xanax] 0.5 mg PO BID PRN 01/03/15 02/22/18 History Azelastine HCl [Astepro] 1 spray NASAL BID PRN 01/03/15 02/22/18 History Biotin 5 mg PO DAILY 01/03/15 02/22/18 History Cholecalciferol [Vitamin D3] 2,000 unit PO DAILY 01/03/15 02/22/18 History Diphenox-Atrop 2.5-0.025 mg 1 - 2 tab PO BID PRN 01/03/15 02/22/18 History [Lomotil] Aspirin 81 mg PO Q48H 07/12/15 02/22/18 History Atorvastatin Calcium [Lipitor] 20 mg PO HS 07/12/15 02/22/18 History Primidone [Mysoline] 50 mg PO TID 07/12/15 02/22/18 History Metoprolol Tartrate [Lopressor] 25 mg PO QAM 02/22/16 02/22/18 History HYDROcodone/APAP 7.5-325MG [[place] 1 tab PO TID PRN 04/24/16 02/22/18 History 7.5-325] Famotidine [Pepcid] 20 mg PO QAM 12/15/16 02/22/18 History Temazepam [Restoril] 15 mg PO HS PRN 10/03/17 02/22/18 History Warfarin [Coumadin] 5 mg PO HS 10/03/17 02/22/18 History Albuterol Nebulized [Ventolin 2.5 mg INHALATION RT-BID PRN 01/24/18 02/22/18 History Nebulized] Ammonium Lactate Lotion 1 applic TOPICAL BID PRN 01/24/18 02/22/18 History [Lac-Hydrin 12% Lotion] Betamethasone/Propylene Glyc 1 applic TOPICAL DAILY PRN 01/24/18 02/22/18 History [Betamethasone Dp Aug 0.05% Lot] Colloidal Oatmeal [Eucerin Eczema 1 applic TOPICAL BID PRN 01/24/18 02/22/18 History Relief] Ferrous Sulfate [Iron (65 MG 325 mg PO HS 01/24/18 02/22/18 History Elemental)] Fluorouracil [Efudex] 1 applic TOPICAL DAILY PRN 01/24/18 02/22/18 History Mometasone Furoate 1 applic TOPICAL DAILY PRN 01/24/18 02/22/18 History Nitroglycerin Sl Tabs [Nitrostat] 0.4 mg SUBLINGUAL Q5M PRN #15 tab 01/25/1801/10 Rx amLODIPine [Norvasc] 5 mg PO DAILY #30 tab 01/25/18 02/22/18 Rx Amiodarone [Cordarone] 200 mg PO BID 02/22/18 02/22/18 History Diazepam [Valium] 5 mg PO BID PRN 02/22/18 02/22/18 History Levothyroxine Sodium [Synthroid] 100 mcg PO DAILY 02/22/18 02/22/18 History Triamcinolone 0.5% Cream [Kenalog 1 applic TOPICAL BID PRN 02/22/18 02/22/18 History 0.5% Cream] Vitamin E (Dl,Tocopheryl Acet) 400 unit PO DAILY 02/22/18 02/22/18 History [Vitamin E] Allergies Allergy/AdvReac Type Severity Reaction Status Date / Time adhesive Allergy Rash/Hives, Verified 02/22/18 18:00 RIPS SKIN Iodinated Contrast- Oral and Allergy Unknown Verified 02/22/18 13:24 IV Dye [Iodinated Contrast Media - IV Dye] meperidine HCl [From Demerol] Allergy Hallucinati Verified 02/22/18 13:24 ons shellfish derived Allergy Anaphylaxis Verified 02/22/18 13:24 Sulfa (Sulfonamide Allergy Unknown Verified 02/22/18 13:24 Antibiotics) zolpidem tartrate Allergy Hallucinati Verified 02/22/18 13:24 [From Ambien] ons morphine AdvReac Nausea & Verified 02/22/18 13:24 Vomiting & Diarrhea Physical Exam Vitals: Vital Signs Temp Pulse Resp BP Pulse Ox 02/23/18 08:30 98.2 F 115 H 20 119/71 96 02/23/18 04:00 107 H 18 02/23/18 00:00 97.4 F L 99 18 118/79 95 02/22/18 20:00 97.3 F L 107 H 18 131/65 95 02/22/18 16:00 97.6 F 98 16 110/72 97 02/22/18 13:06 97.7 F 90 18 96/65 97 Intake and Output 02/22/18 02/23/18 02/23/18 22:59 06:59 14:59 Intake Total 120 120 Balance 120 120 Intake: Oral 120 120 Other: Voiding Method Toilet Toilet # Voids 2 3 # Bowel Movements 1 Weight 58.18 kg 57.8 kg - Constitutional General appearance: no acute distress - Respiratory Respiratory: bilateral: CTA - Cardiovascular Rhythm: regular Heart sounds: normal: S1, S2 Results 02/23/18 05:36 02/23/18 05:36 Cardiac Enzymes 02/22/18 02/22/18 02/23/18 Range/Units 14:50 14:50 05:36 AST 31 25 (14-36) U/L Troponin I <0.012 (0.000-0.034) ng/mL Coagulation 02/22/18 02/23/18 Range/Units 14:50 05:36 PT 35.3 H 28.6 H (9.0-12.0) sec CBC 02/22/18 02/23/18 Range/Units 14:50 05:36 WBC 3.7 L 3.7 L (3.8-10.6) k/uL RBC 3.56 L 3.23 L (3.80-5.40) m/uL Hgb 11.4 10.1 L (11.4-16.0) gm/dL Hct 34.3 30.6 L (34.0-46.0) % Plt Count 148 L 150 (150-450) k/uL Comprehensive Metabolic Panel 02/22/18 02/23/18 Range/Units 14:50 05:36 Sodium 140 141 (137-145) mmol/L Potassium 4.6 4.8 (3.5-5.1) mmol/L Chloride 106 105 (98-107) mmol/L Carbon Dioxide 23 28 (22-30) mmol/L BUN 29 H 27 H (7-17) mg/dL Creatinine 1.30 H 1.36 H (0.52-1.04) mg/dL Glucose 77 85 (74-99) mg/dL Calcium 8.6 8.4 (8.4-10.2) mg/dL AST 31 25 (14-36) U/L ALT 38 32 (9-52) U/L Alkaline Phosphatase 84 72 (38-126) U/L Total Protein 5.9 L 5.2 L (6.3-8.2) g/dL Albumin 3.6 3.0 L (3.5-5.0) g/dL Current Medications Generic Name Dose Route Start Last Admin Trade Name Freq PRN Reason Stop Dose Admin Hydrocodone Bitart/Acetaminophen 1 each 02/22/18 14:36 [place] 7.5-325 PO TID PRN Moderate Pain Albuterol Sulfate 2.5 mg 02/22/18 14:36 Ventolin Nebulized INHALATION RT-BID PRN Shortness Of Breath Alprazolam 0.5 mg 02/22/18 14:36 Xanax PO BID PRN Anxiety Amiodarone HCl 200 mg 02/22/18 21:00 02/23/18 08:33 Cordarone PO 200 mg BID ROMAIN Administration Aspirin 81 mg 02/24/18 09:00 Aspirin PO Q48H ROMAIN Atorvastatin Calcium 20 mg 02/22/18 21:00 02/22/18 20:33 Lipitor PO 20 mg HS ROMAIN Administration Azelastine HCl 1 spray 02/22/18 14:36 Astepro NASAL BID PRN Nasal Congestion Cholecalciferol 2,000 unit 02/23/18 12:00 Vitamin D3 PO 1200 [place]AIN Diphenoxylate HCl/Atropine 2 each 02/22/18 14:36 Lomotil PO BID PRN Diarrhea Famotidine 20 mg 02/23/18 09:00 02/23/18 08:33 Pepcid PO 20 mg QAM ROMAIN Administration Ferrous Sulfate 325 mg 02/22/18 21:00 02/22/18 20:33 Feosol PO 325 mg HS ROMAIN Administration Furosemide 40 mg 02/23/18 09:00 Lasix IV Q12HR ROMAIN Lactic Acid 1 applic 02/22/18 14:36 Lac-Hydrin 12% TOPICAL BID PRN Rash Levothyroxine Sodium 100 mcg 02/23/18 06:30 02/23/18 06:50 Synthroid PO 100 mcg 0630 ROMAIN Administration Metoprolol Tartrate 25 mg 02/23/18 09:00 Lopressor PO TID ROMAIN Montelukast Sodium 10 mg 02/22/18 21:00 02/22/18 20:33 Singulair PO 10 mg HS ROMAIN Administration Multi-Ingred Cream/Lotion/Oil/Oint 1 applic 02/22/18 14:36 Eucerin Cream TOPICAL BID PRN Dry Skin Nitroglycerin 0.4 mg 02/22/18 14:36 Nitrostat SUBLINGUAL Q5M PRN Chest Pain Non-Formulary Medication 1 applic 02/22/18 14:36 Fluorouracil [Efudex] TOPICAL DAILY PRN Dry Skin Primidone 50 mg 02/22/18 16:00 02/23/18 08:33 Mysoline PO 50 mg TID ROMAIN Administration Temazepam 15 mg 02/22/18 14:36 Restoril PO HS PRN Insomnia Triamcinolone Acetonide 1 applic 02/22/18 14:36 Kenalog 0.5% Cream TOPICAL BID PRN Skin Irritation Vitamin E 400 unit 02/23/18 12:00 Vitamin E PO 1200 [facility] Intake and Output 02/22/18 02/23/18 02/23/18 22:59 06:59 14:59 Intake Total 120 120 Balance 120 120 Intake: Oral 120 120 Other: Voiding Method Toilet Toilet # Voids 2 3 # Bowel Movements 1 Weight 58.18 kg 57.8 kg 02/23/18 05:36 02/23/18 05:36 Assessment and Plan Assessment: assessment #1 congestive heart failure exacerbation secondary to systolic dysfunction #2 atrial fibrillation with uncontrolled heart rate #3 known paroxysmal atrial fibrillation #4 coronary artery disease and status post CABG as described above #5 chronic kidney disease #6 multiple comorbid conditions Plan #1 start the patient on IV diuretics with continuous monitoring the kidney function and electrolytes #2 increase the dose of metoprolol to 25 mg by mouth 3 times a day for better heart rate control #3 continue antiarrhythmic medications with amiodarone #4 monitor the weight as well as the input and output #5 follow-up with the patient. Thank you for allowing us participate in her care and we'll continue following up with the patient
[2018-02-23 10:57] VITALS: BMI 24.0
[2018-02-23] MEDS: METOPROLOL TARTRATE 25 MG TAB PO SCH ×3 (11:40→20:19)
[2018-02-23] MEDS: CHOLECALCIFEROL 1,000 UNIT TAB PO SCH (11:43)
[2018-02-23] MEDS: VITAMIN E (DL,TOCOPHERYL ACET) 400 UNIT CAP PO SCH (11:43)
[2018-02-23] MEDS: FUROSEMIDE 10 MG/ML 4 ML VIAL IV SCH ×2 (12:09→20:20)
--- NOTE | 2018-02-23 12:48 | P.PN ---
Subjective Progress Note Date: 02/23/18 This is a 83-year-old female with a known past medical history of coronary artery disease with CABG, paroxysmal atrial fibrillation anticoagulated with Coumadin, chronic kidney disease stage III, hypertension, hyperlipidemia, hypothyroidism and generalized anxiety disorder. Patient reports that she's had worsening shortness of breath for the last few days. 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 CHITO Segovia because she was short of breath and having heart palpitations. He added the amiodarone to her regimen of medications since she was in atrial fibrillation. Patient reports she continued to have shortness of breath and went into see Dr. Finley her PCP today. She was then sent directly from the office to the hospital for admission for congestive heart failure exacerbation. Patient reports no previous history of congestive heart failure. Patient reports shortness of breath with lower extremity edema bilaterally. She is unable to lay flat in bed. She does also complain of pain in her legs. Denies any chest pain. Denies any nausea or vomiting. Denies any bowel movement changes or urinary symptoms. Denies any fever chills or sweats. Denies any cough. Patient's last echo was 01/25/2018 showing an EF of 55-60% mild to moderate aortic regurgitation and tricuspid regurgitation and mild pulmonary hypertension. Chest x-ray, EKG, BNP and cardiology consult has been placed. Also will hold patient's Norvasc because she's been hypotensive. The Norvasc also may be contributing to patient's lower extremity edema. 02/23/2018 patient seen by cardiology. They've added IV Lasix. Patient reports that her shortness of breath is improving. Still has some lower extremity edema. Doppler is negative for DVT. Denies any chest pain. Denies any nausea or vomiting. Denies any bowel movement changes or urinary symptoms. Objective - Vital Signs Vital signs: Vital Signs Temp 97.9 F 02/23/18 11:39 Pulse 121 H 02/23/18 11:39 Resp 16 02/23/18 11:39 BP 124/83 02/23/18 11:39 Pulse Ox 94 L 02/23/18 11:39 Intake & Output 02/22/18 02/23/18 02/23/18 18:59 06:59 18:59 Intake Total 120 120 Output Total 200 Balance 120 -80 Weight 58.18 kg 57.8 kg 57.8 kg Intake: Oral 120 120 Output: Urine 200 Other: Voiding Method Toilet Toilet # Voids 1 3 # Bowel Movements 1 - Exam Head normocephalic Neck supple Lungs clear to auscultation bilaterally no wheezing or crackles Heart irregular. A. fib on monitor Abdomen is soft nontender nondistended positive bowel sounds no hepatosplenomegaly Extremities edema bilateral lower extremities Neuro alert and orientated to 3 - Labs CBC & Chem 7: 02/23/18 05:36 02/23/18 05:36 Labs: Abnormal Lab Results - Last 24 Hours (Table) 02/22/18 02/22/18 02/22/18 Range/Units 14:50 14:50 14:50 WBC 3.7 L (3.8-10.6) k/uL RBC 3.56 L (3.80-5.40) m/uL Hgb (11.4-16.0) gm/dL Hct (34.0-46.0) % Plt Count 148 L (150-450) k/uL Lymphocytes # 0.7 L (1.0-4.8) k/uL PT 35.3 H (9.0-12.0) sec INR 3.9 H (<1.2) BUN 29 H (7-17) mg/dL Creatinine 1.30 H (0.52-1.04) mg/dL Total Protein 5.9 L (6.3-8.2) g/dL Albumin (3.5-5.0) g/dL TSH 0.246 L (0.465-4.680) mIU/L 02/23/18 02/23/18 02/23/18 Range/Units 05:36 05:36 05:36 WBC 3.7 L (3.8-10.6) k/uL RBC 3.23 L (3.80-5.40) m/uL Hgb 10.1 L (11.4-16.0) gm/dL Hct 30.6 L (34.0-46.0) % Plt Count (150-450) k/uL Lymphocytes # 0.7 L (1.0-4.8) k/uL PT 28.6 H (9.0-12.0) sec INR 3.2 H (<1.2) BUN 27 H (7-17) mg/dL Creatinine 1.36 H (0.52-1.04) mg/dL Total Protein 5.2 L (6.3-8.2) g/dL Albumin 3.0 L (3.5-5.0) g/dL TSH (0.465-4.680) mIU/L Assessment and Plan Assessment: 1. Shortness of breath likely related to an acute CHF exacerbation. Check chest x-ray, BNP, EKG and consult cardiology 2. Acute diastolic CHF exacerbation: Echo from 01/25/2018 shows an EF of 55-60 % with mild to moderate aortic regurgitation and tricuspid regurgitation with mild pulmonary hypertension. 3. History of paroxysmal atrial fibrillation: Patient is currently in atrial fibrillation on the monitor. Recently started on amiodarone. Continue metoprolol. Anticoagulated with Coumadin. INR 3.2. Give Coumadin 2 mg tonight. Check PT/INR in a.m. 4. Bilateral lower extremity edema with tenderness in the calves. Doppler negative for DVT. 5. History of coronary artery disease with previous CABG 6. Hypothyroidism resume Synthroid . TSH low at 0.246 and free T4 1 0.56. Decrease Synthroid to 88 g daily 7. Hyperlipidemia 8. Chronic kidney disease stage III 9. Iron deficiency anemia: Continue iron supplement. Hemoglobin 10.1. Check iron studies GI prophylaxis Pepcid and DVT prophylaxis Coumadin I performed an examination of the patient and discussed their management with the physician Third Officer. I have reviewed the Physician Third Officer's notes and agree with the documented findings and plan of care
[2018-02-23] MEDS ORDERED: WARFARIN 2 MG TAB PO ONE (18:00)
[2018-02-23 18:52] LABS: Iron Saturation 12.46 (12.00-45.00)
[2018-02-23] MEDS: ATORVASTATIN 20 MG TAB PO SCH (20:19)
[2018-02-23] MEDS: FERROUS SULFATE 325 MG TAB PO SCH (20:19)
[2018-02-23] MEDS: MONTELUKAST 10 MG TAB PO SCH (20:20)
[2018-02-24] MEDS: HYDROcodone/APAP 7.5-325MG 1 EACH TAB PO PRN (03:03)
[2018-02-24] MEDS: LEVOTHYROXINE 88 MCG TAB PO SCH (06:20)
[2018-02-24 06:28] LABS: Basophils % (A) 1 %; Eosinophils # (A) 0.1 k/uL (0-0.7); Eosinophils % (A) 3 %; HCT 32.9 % (34.0-46.0); HGB 10.9 gm/dL (11.4-16.0); Lymphocytes % (A) 25 %; MCH 31.4 pg (25.0-35.0); MCHC 33.2 g/dL (31.0-37.0); MCV 94.4 fL (80.0-100.0); Mean Platelet Volume 8.7; Monocytes # (A) 0.4 k/uL (0-1.0); Monocytes % (A) 11 %; Neutrophils # (A) 2.3 k/uL (1.3-7.7); Neutrophils % (A) 58 %; Platelet Count 183 k/uL (150-450); RBC 3.48 m/uL (3.80-5.40); RDW 13.2 % (11.5-15.5)
[2018-02-24 06:40] LABS: Albumin 3.3 g/dL (3.5-5.0); Potassium 4.5 mmol/L (3.5-5.1); Total Bilirubin 0.4 mg/dL (0.2-1.3); Total Protein 5.8 g/dL (6.3-8.2)
[2018-02-24 06:50] LABS: INR 2.3 (<1.2); Prothrombin Time 20.4 sec (9.0-12.0)
--- NOTE | 2018-02-24 07:46 | P.PN ---
Subjective Progress Note Date: 02/24/18 Patient is an 83-year-old female admitted to [facility] with worsening shortness of breath, patient had evidence of atrial fibrillation with rapid ventricular response and evidence of acute congestive heart failure exacerbation she has been maintained on IV Lasix 20 mg every 8 hours, dose of metoprolol was increased to 25 mg 3 times daily, she is continued on amiodarone , she is feeling better shortness of breath has improved and lower extremity edema has improved, weight is down from 58.1-56.1 kg grams. Clinically patient is feeling better she is having less shortness of breath she is able to ambulate using her cane she denies any chest pain. There is no fever or chills no headache no dizziness, no cough no nausea or vomiting no abdominal pain no diarrhea and no urinary symptoms Objective - Vital Signs Vital signs: Vital Signs Temp 97.8 F 02/23/18 15:42 Pulse 94 02/24/18 04:00 Resp 18 02/24/18 04:00 BP 96/50 02/24/18 04:00 Pulse Ox 91 L 02/24/18 04:00 Intake & Output 02/23/18 02/24/18 02/24/18 18:59 06:59 18:59 Intake Total 600 Output Total 600 1000 Balance 0 -1000 Weight 57.8 kg 56.1 kg Intake: Oral 600 Output: Urine 600 1000 Other: Voiding Method Toilet Toilet # Voids 1 # Bowel Movements 1 - Exam In general patient is alert and oriented 3 in no apparent distress HEENT head normocephalic and atraumatic Neck is supple no JVD no goiter no lymphadenopathy Chest exam reveals a few scattered crackles bilaterally no wheezing Cardiac exam reveals irregular irregular heart sounds S1 and S2 no gallops no murmurs Abdomen is soft nontender no organomegaly with normal bowel sounds Extremity exam reveals minimal edema no cyanosis or clubbing Neurological examination reveals no gross focal deficit - Labs CBC & Chem 7: 02/24/18 05:42 02/24/18 05:42 Labs: Abnormal Lab Results - Last 24 Hours (Table) 02/23/18 02/24/18 02/24/18 Range/Units 05:36 05:42 05:42 RBC 3.48 L (3.80-5.40) m/uL Hgb 10.9 L (11.4-16.0) gm/dL Hct 32.9 L (34.0-46.0) % PT 20.4 H (9.0-12.0) sec INR 2.3 H (<1.2) BUN (7-17) mg/dL Creatinine (0.52-1.04) mg/dL Iron 35 L (50-170) ug/dL Total Protein (6.3-8.2) g/dL Albumin (3.5-5.0) g/dL 02/24/18 Range/Units 05:42 RBC (3.80-5.40) m/uL Hgb (11.4-16.0) gm/dL Hct (34.0-46.0) % PT (9.0-12.0) sec INR (<1.2) BUN 28 H (7-17) mg/dL Creatinine 1.70 H (0.52-1.04) mg/dL Iron (50-170) ug/dL Total Protein 5.8 L (6.3-8.2) g/dL Albumin 3.3 L (3.5-5.0) g/dL Assessment and Plan Plan: 1. Shortness of breath likely related to an acute CHF exacerbation. Check chest x-ray, BNP, EKG and consult cardiology 2. Acute diastolic CHF exacerbation: Echo from 01/25/2018 shows an EF of 55-60 % with mild to moderate aortic regurgitation and tricuspid regurgitation with mild pulmonary hypertension. Patient is improving weight is down from 58.1 kg to 56.1 kg since admission. 3. History of paroxysmal atrial fibrillation: Patient is currently in atrial fibrillation on the monitor. Recently started on amiodarone. Continue metoprolol. Dose of metoprolol increased to 25 mg 3 times a day by cardiology. Anticoagulated with Coumadin. INR 3.2. Give Coumadin 2 mg tonight. Check PT/ INR in a.m. 4. Bilateral lower extremity edema with tenderness in the calves. Doppler negative for DVT. Lower extremity edema improved with IV Lasix 5. History of coronary artery disease with previous CABG 6. Hypothyroidism resume Synthroid . TSH low at 0.246 and free T4 1 0.56. Decrease Synthroid to 88 g daily 7. Hyperlipidemia 8. Chronic kidney disease stage III 9. Iron deficiency anemia: Continue iron supplement. Hemoglobin 10.1. Check iron studies GI prophylaxis Pepcid and DVT prophylaxis Coumadin
[2018-02-24] MEDS: METOPROLOL TARTRATE 25 MG TAB PO SCH (07:58)
[2018-02-24] MEDS: PRIMIDONE 50 MG TAB PO SCH ×3 (07:58→21:17)
[2018-02-24] MEDS: FAMOTIDINE 20 MG TAB PO SCH (07:58)
[2018-02-24] MEDS: AMIODARONE 200 MG TAB PO SCH ×2 (07:59→21:17)
[2018-02-24] MEDS ORDERED: ASPIRIN 81 MG PO SCH (09:00)
[2018-02-24] MEDS: FUROSEMIDE 10 MG/ML 4 ML VIAL IV SCH ×2 (09:47→09:52)
--- NOTE | 2018-02-24 12:06 | P.PN ---
Subjective Progress Note Date: 02/24/18 This is a pleasant 83-year-old female who follows with Dr. Jose Antonio Segovia as an outpatient. She has a past medical history significant for coronary artery disease and prior bypass surgery in 2011 at which time she received a NAILS to the LAD, saphenous vein graft to the OM, saphenous vein graft to the RCA , also has history of paroxysmal atrial fibrillation, hypertension, hyperlipidemia. She presented to the hospital on this occasion with symptoms of shortness of breath. Patient was initiated on IV Lasix and overall has diuresed well. On admission here the patient was also in atrial fibrillation with a rapid ventricular response and medication adjustments were made. Her weight today is down 1 kg, creatinine today 1.7, INR 2.3. Blood pressure 118/60 , heart rate low 100s. Patient was seen and examined, feeling well, no complaints. No peripheral edema, lungs are clear. Objective - Vital Signs Vital signs: Vital Signs Temp 96.9 F L 02/24/18 07:54 Pulse 122 H 02/24/18 07:54 Resp 20 02/24/18 08:00 BP 119/63 02/24/18 07:54 Pulse Ox 94 L 02/24/18 07:54 Intake & Output 02/23/18 02/24/18 02/24/18 18:59 06:59 18:59 Intake Total 600 240 Output Total 600 1000 600 Balance 0 -1000 -360 Weight 57.8 kg 56.1 kg Intake: Oral 600 240 Output: Urine 600 1000 600 Other: Voiding Method Toilet Toilet Toilet # Voids 1 # Bowel Movements 1 - Exam PHYSICAL EXAMINATION: HEENT: Head is atraumatic, normocephalic. Pupils equal, round. Neck is supple. There is no elevated jugular venous pressure. HEART EXAMINATION: Heart S1 and S2 systolic murmur is heard. CHEST EXAMINATION: Lungs are clear to auscultation and precussion. No chest wall tenderness is noted on palpation or with deep breathing. ABDOMEN: Soft, nontender. Bowel sounds are heard. No organomegaly noted. EXTREMITIES: 2+ peripheral pulses with no evidence of peripheral edema and no calf tenderness noted. NEUROLOGIC patient is awake, alert and oriented -3. . - Labs CBC & Chem 7: 02/24/18 05:42 02/24/18 05:42 Labs: Abnormal Lab Results - Last 24 Hours (Table) 02/23/18 02/24/18 02/24/18 Range/Units 05:36 05:42 05:42 RBC 3.48 L (3.80-5.40) m/uL Hgb 10.9 L (11.4-16.0) gm/dL Hct 32.9 L (34.0-46.0) % PT 20.4 H (9.0-12.0) sec INR 2.3 H (<1.2) BUN (7-17) mg/dL Creatinine (0.52-1.04) mg/dL Iron 35 L (50-170) ug/dL Total Protein (6.3-8.2) g/dL Albumin (3.5-5.0) g/dL 02/24/18 Range/Units 05:42 RBC (3.80-5.40) m/uL Hgb (11.4-16.0) gm/dL Hct (34.0-46.0) % PT (9.0-12.0) sec INR (<1.2) BUN 28 H (7-17) mg/dL Creatinine 1.70 H (0.52-1.04) mg/dL Iron (50-170) ug/dL Total Protein 5.8 L (6.3-8.2) g/dL Albumin 3.3 L (3.5-5.0) g/dL Assessment and Plan Plan: Assessment and plan #1 systolic congestive heart failure acute on chronic #2 chronic persistent atrial fibrillation, heart rate in the low 100s today. #3 known history of coronary artery disease with prior bypass surgery #4 chronic kidney disease #5 hypertension #6 hyperlipidemia Plan We will discontinue the IV Lasix today and put the patient on oral diuretics. Increase metoprolol to 50 mg by mouth twice a day for more optimal heart rate. Continue Coumadin, monitor INR closely as the patient is also on amiodarone. DNP note has been reviewed, I agree with a documented findings and plan of care. Patient was seen and examined.
[2018-02-24] MEDS: VITAMIN E (DL,TOCOPHERYL ACET) 400 UNIT CAP PO SCH (13:02)
[2018-02-24] MEDS: CHOLECALCIFEROL 1,000 UNIT TAB PO SCH (13:02)
[2018-02-24] MEDS: FUROSEMIDE 40 MG TAB PO SCH (16:29)
[2018-02-24] MEDS ORDERED: WARFARIN 2 MG TAB PO ONE (18:00)
[2018-02-24] MEDS: FERROUS SULFATE 325 MG TAB PO SCH (21:17)
[2018-02-24] MEDS: ATORVASTATIN 20 MG TAB PO SCH (21:17)
[2018-02-24] MEDS: METOPROLOL TARTRATE 50 MG TAB PO SCH (21:17)
[2018-02-24] MEDS: MONTELUKAST 10 MG TAB PO SCH (21:17)
[2018-02-24 22:40] VITALS: RESP 18
[2018-02-25] MEDS: LEVOTHYROXINE 88 MCG TAB PO SCH (06:23)
[2018-02-25 06:33] LABS: Basophils % (A) 1 %; Eosinophils # (A) 0.2 k/uL (0-0.7); Eosinophils % (A) 4 %; HCT 34.5 % (34.0-46.0); HGB 11.4 gm/dL (11.4-16.0); Lymphocytes % (A) 24 %; MCH 31.2 pg (25.0-35.0); MCV 94.6 fL (80.0-100.0); Mean Platelet Volume 7.9; Monocytes # (A) 0.3 k/uL (0-1.0); Monocytes % (A) 8 %; Neutrophils # (A) 2.6 k/uL (1.3-7.7); Neutrophils % (A) 62 %; Platelet Count 216 k/uL (150-450); RBC 3.65 m/uL (3.80-5.40); RDW 13.2 % (11.5-15.5); WBC 4.3 k/uL (3.8-10.6)
[2018-02-25 06:36] LABS: INR 1.9 (<1.2); Prothrombin Time 17.6 sec (9.0-12.0)
[2018-02-25 06:42] LABS: Albumin 3.3 g/dL (3.5-5.0); Calcium 8.9 mg/dL (8.4-10.2); Potassium 4.9 mmol/L (3.5-5.1); Total Bilirubin 0.3 mg/dL (0.2-1.3); Total Protein 5.7 g/dL (6.3-8.2)
[2018-02-25] MEDS: AMIODARONE 200 MG TAB PO SCH (08:23)
[2018-02-25] MEDS: FUROSEMIDE 40 MG TAB PO SCH (08:24)
[2018-02-25] MEDS: FAMOTIDINE 20 MG TAB PO SCH (08:24)
[2018-02-25] MEDS: METOPROLOL TARTRATE 50 MG TAB PO SCH (08:24)
[2018-02-25] MEDS: VITAMIN E (DL,TOCOPHERYL ACET) 400 UNIT CAP PO SCH (08:25)
[2018-02-25] MEDS: PRIMIDONE 50 MG TAB PO SCH (08:25)
[2018-02-25] MEDS: CHOLECALCIFEROL 1,000 UNIT TAB PO SCH (08:26)
[2018-02-25 08:38] VITALS: BP 115/50; PULSE 119; TEMP 97.1
--- NOTE | 2018-02-25 10:44 | P.DS ---
Providers Date of admission: 02/22/18 11:58 Expected date of discharge: 02/25/18 Attending physician: Fabián Finley Consults: 02/22/18 14:33 Consult Physician Routine Consulting Provider: Shane Shaikh Consult Reason/Comments: CHF exacerbation, afib Do you want consulting provider notified?: Yes Placement Type Exists?: Yes Primary care physician: Fabián Finley [place] [facility] Course: Diagnoses on discharge: 1. Shortness of breath likely related to an acute CHF exacerbation. Check chest x-ray, BNP, EKG and consult cardiology 2. Acute diastolic CHF exacerbation: Echo from 01/25/2018 shows an EF of 55-60 % with mild to moderate aortic regurgitation and tricuspid regurgitation with mild pulmonary hypertension. Awaiting for repeat BNP level. Patient has been hypotensive. We'll have nursing staff notify cardiology and await their recommendation regarding diuretics 3. History of paroxysmal atrial fibrillation: Patient is currently in atrial fibrillation on the monitor rate controlled. Recently started on amiodarone. Continue metoprolol. Anticoagulated with Coumadin. Awaiting PT/INR results before dosing Coumadin. Cardiology consulted 4. Bilateral lower extremity edema with tenderness in the calves. Will check venous Doppler to rule out DVT. 5. History of coronary artery disease with previous CABG 6. Hypothyroidism resume Synthroid and check TSH level 7. Hyperlipidemia 8. Chronic kidney disease stage III Hospital course: This is a 83-year-old female with a known past medical history of coronary artery disease with CABG, paroxysmal atrial fibrillation anticoagulated with Coumadin, chronic kidney disease stage III, hypertension, hyperlipidemia, hypothyroidism and generalized anxiety disorder. Patient reports that she's had worsening shortness of breath for the last few days. She reports she had went to her die casting machine operator's Dr. CHITO Segovia because she was short of breath and having heart palpitations. He added the amiodarone to her regimen of medications since she was in atrial fibrillation. Patient reports she continued to have shortness of breath and went into see Dr. Finley her PCP today. She was then sent directly from the office to the hospital for admission for congestive heart failure exacerbation. Patient reports no previous history of congestive heart failure. Patient reports shortness of breath with lower extremity edema bilaterally. She is unable to lay flat in bed. She does also complain of pain in her legs. Denies any chest pain. Denies any nausea or vomiting. Denies any bowel movement changes or urinary symptoms. Denies any fever chills or sweats. Denies any cough. Patient's last echo was 01/25/2018 showing an EF of 55-60% mild to moderate aortic regurgitation and tricuspid regurgitation and mild pulmonary hypertension. Chest x-ray, EKG, BNP and cardiology consult has been placed. Also will hold patient's Norvasc because she's been hypotensive. The Norvasc also may be contributing to patient's lower extremity edema. Patient received IV Lasix she was seen by cardiology she improved significantly dose of metoprolol was increased from 25 mg daily to 50 mg twice daily TSH was slightly low and dose of Synthroid was decreased from 100 g daily to 88 g daily Patient improved she was switched to oral Lasix she was discharged home on 02/25 with a dose of Lasix of 40 mg twice daily She will be followed in our office within 1 week will check labs including kidney function within one week Plan - Discharge Summary Discharge Rx Participant: No New Discharge Prescriptions: New Furosemide [Lasix] 40 mg PO BID@0900,1600 tab Levothyroxine Sodium [Synthroid] 88 mcg PO 0630 tab Metoprolol Tartrate [Lopressor] 50 mg PO BID tab Continue Montelukast [Singulair] 10 mg PO HS Diphenox-Atrop 2.5-0.025 mg [Lomotil] 1 - 2 tab PO BID PRN PRN Reason: Diarrhea ALPRAZolam [Xanax] 0.5 mg PO BID PRN PRN Reason: Anxiety Cholecalciferol [Vitamin D3] 2,000 unit PO DAILY Biotin 5 mg PO DAILY Azelastine HCl [Astepro] 1 spray NASAL BID PRN PRN Reason: Nasal Congestion Atorvastatin Calcium [Lipitor] 20 mg PO HS Primidone [Mysoline] 50 mg PO TID Aspirin 81 mg PO Q48H HYDROcodone/APAP 7.5-325MG [[place] 7.5-325] 1 tab PO TID PRN PRN Reason: Pain Famotidine [Pepcid] 20 mg PO QAM Warfarin [Coumadin] 5 mg PO HS Temazepam [Restoril] 15 mg PO HS PRN PRN Reason: Insomnia Ferrous Sulfate [Iron (65 MG Elemental)] 325 mg PO HS Fluorouracil [Efudex] 1 applic TOPICAL DAILY PRN PRN Reason: Dry Skin Betamethasone/Propylene Glyc [Betamethasone Dp Aug 0.05% Lot] 1 applic TOPICAL DAILY PRN PRN Reason: Skin Irritation Ammonium Lactate Lotion [Lac-Hydrin 12% Lotion] 1 applic TOPICAL BID PRN PRN Reason: Rash Colloidal Oatmeal [Eucerin Eczema Relief] 1 applic TOPICAL BID PRN PRN Reason: Dry Skin Albuterol Nebulized [Ventolin Nebulized] 2.5 mg INHALATION RT-BID PRN PRN Reason: Shortness Of Breath Mometasone Furoate 1 applic TOPICAL DAILY PRN PRN Reason: Skin Irritation amLODIPine [Norvasc] 5 mg PO DAILY #30 tab Nitroglycerin Sl Tabs [Nitrostat] 0.4 mg SUBLINGUAL Q5M PRN #15 tab PRN Reason: Chest Pain Vitamin E (Dl,Tocopheryl Acet) [Vitamin E] 400 unit PO DAILY Triamcinolone 0.5% Cream [Kenalog 0.5% Cream] 1 applic TOPICAL BID PRN PRN Reason: Skin Irritation Diazepam [Valium] 5 mg PO BID PRN PRN Reason: Anxiety Amiodarone [Cordarone] 200 mg PO BID Discontinued Metoprolol Tartrate [Lopressor] 25 mg PO QAM Levothyroxine Sodium [Synthroid] 100 mcg PO DAILY Discharge Medication List Montelukast [Singulair] 10 mg PO HS 04/27/14 [History] ALPRAZolam [Xanax] 0.5 mg PO BID PRN 01/03/15 [History] Azelastine HCl [Astepro] 1 spray NASAL BID PRN 01/03/15 [History] Biotin 5 mg PO DAILY 01/03/15 [History] Cholecalciferol [Vitamin D3] 2,000 unit PO DAILY 01/03/15 [History] Diphenox-Atrop 2.5-0.025 mg [Lomotil] 1 - 2 tab PO BID PRN 01/03/15 [History] Aspirin 81 mg PO Q48H 07/12/15 [History] Atorvastatin Calcium [Lipitor] 20 mg PO HS 07/12/15 [History] Primidone [Mysoline] 50 mg PO TID 07/12/15 [History] HYDROcodone/APAP 7.5-325MG [[place] 7.5-325] 1 tab PO TID PRN 04/24/16 [History] Famotidine [Pepcid] 20 mg PO QAM 12/15/16 [History] Temazepam [Restoril] 15 mg PO HS PRN 10/03/17 [History] Warfarin [Coumadin] 5 mg PO HS 10/03/17 [History] Albuterol Nebulized [Ventolin Nebulized] 2.5 mg INHALATION RT-BID PRN 01/24/18 [ History] Ammonium Lactate Lotion [Lac-Hydrin 12% Lotion] 1 applic TOPICAL BID PRN [History] Betamethasone/Propylene Glyc [Betamethasone Dp Aug 0.05% Lot] 1 applic TOPICAL DAILY PRN 01/24/18 [History] Colloidal Oatmeal [Eucerin Eczema Relief] 1 applic TOPICAL BID PRN 01/24/18 [ History] Ferrous Sulfate [Iron (65 MG Elemental)] 325 mg PO HS 01/24/18 [History] Fluorouracil [Efudex] 1 applic TOPICAL DAILY PRN 01/24/18 [History] Mometasone Furoate 1 applic TOPICAL DAILY PRN 01/24/18 [History] Nitroglycerin Sl Tabs [Nitrostat] 0.4 mg SUBLINGUAL Q5M PRN #15 tab 01/25/18 [Rx ] amLODIPine [Norvasc] 5 mg PO DAILY #30 tab 01/25/18 [Rx] Amiodarone [Cordarone] 200 mg PO BID 02/22/18 [History] Diazepam [Valium] 5 mg PO BID PRN 02/22/18 [History] Triamcinolone 0.5% Cream [Kenalog 0.5% Cream] 1 applic TOPICAL BID PRN 02/22/18 [History] Vitamin E (Dl,Tocopheryl Acet) [Vitamin E] 400 unit PO DAILY 02/22/18 [History] Furosemide [Lasix] 40 mg PO BID@0900,1600 tab 02/25/18 [Rx] Levothyroxine Sodium [Synthroid] 88 mcg PO 0630 tab 02/25/18 [Rx] Metoprolol Tartrate [Lopressor] 50 mg PO BID tab 02/25/18 [Rx] Follow up Appointment(s)/Referral(s): Nasim Segovia MD [STAFF PHYSICIAN] - 03/16/18 3:30 pm (Please keep previous appointment. Office to call if Dr. Segovia can see you sooner. ) Fabián Finley MD [Primary Care Provider] - 03/04/18 2:15 pm Patient Instructions/Handouts: Heart Failure (DC), Heart Healthy Diet (DC)
[2018-02-25] MEDS: HYDROcodone/APAP 7.5-325MG 1 EACH TAB PO PRN (11:55)
--- NOTE | 2018-02-25 12:34 | P.PN ---
Subjective Progress Note Date: 02/25/18 This is a pleasant 83-year-old female who follows with Dr. Jose Antonio Segovia as an outpatient. She has a past medical history significant for coronary artery disease and prior bypass surgery in 2011 at which time she received a NAILS to the LAD, saphenous vein graft to the OM, saphenous vein graft to the RCA , also has history of paroxysmal atrial fibrillation, hypertension, hyperlipidemia. She presented to the hospital on this occasion with symptoms of shortness of breath. Patient was initiated on IV Lasix and overall has diuresed well. On admission here the patient was also in atrial fibrillation with a rapid ventricular response and medication adjustments were made. Her weight today is down 1 kg, creatinine today 1.7, INR 2.3. Blood pressure 118/60 , heart rate low 100s. Patient was seen and examined, feeling well, no complaints. No peripheral edema, lungs are clear. 02/25/2018 Patient seen and examined this morning, breathing is stable, denies any palpitations. Heart rate in the 90s to low 100s this morning. Blood pressure 116/50. INR today 1.9. Creatinine 1.7. Objective - Vital Signs Vital signs: Vital Signs Temp 97.1 F L 02/25/18 08:15 Pulse 119 H 02/25/18 08:15 Resp 18 02/25/18 08:15 BP 115/50 02/25/18 08:15 Pulse Ox 95 02/25/18 08:15 Intake & Output 02/24/18 02/25/18 02/25/18 18:59 06:59 18:59 Intake Total 720 200 240 Output Total 600 200 Balance 120 0 240 Weight 56.5 kg Intake: Oral 720 200 240 Output: Urine 600 200 Other: Voiding Method Toilet Toilet Toilet # Voids 2 1 - Exam PHYSICAL EXAMINATION: HEENT: Head is atraumatic, normocephalic. Pupils equal, round. Neck is supple. There is no elevated jugular venous pressure. HEART EXAMINATION: Heart S1 and S2 systolic murmur is heard. CHEST EXAMINATION: Lungs are clear to auscultation and precussion. No chest wall tenderness is noted on palpation or with deep breathing. ABDOMEN: Soft, nontender. Bowel sounds are heard. No organomegaly noted. EXTREMITIES: 2+ peripheral pulses with no evidence of peripheral edema and no calf tenderness noted. NEUROLOGIC patient is awake, alert and oriented -3. . - Labs CBC & Chem 7: 02/25/18 05:50 02/25/18 05:50 Labs: Abnormal Lab Results - Last 24 Hours (Table) 02/25/18 02/25/18 02/25/18 Range/Units 05:50 05:50 05:50 RBC 3.65 L (3.80-5.40) m/uL PT 17.6 H (9.0-12.0) sec INR 1.9 H (<1.2) BUN 33 H (7-17) mg/dL Creatinine 1.70 H (0.52-1.04) mg/dL Total Protein 5.7 L (6.3-8.2) g/dL Albumin 3.3 L (3.5-5.0) g/dL Assessment and Plan Plan: Assessment and plan #1 systolic congestive heart failure acute on chronic #2 chronic persistent atrial fibrillation, heart rate in the low 100s today. #3 known history of coronary artery disease with prior bypass surgery #4 chronic kidney disease #5 hypertension #6 hyperlipidemia Plan From cardiology's perspective, patient may be able to be discharged home today we will make her a follow-up appointment in the office with Dr. Jose Antonio Segovia post discharge. DNP note has been reviewed, I agree with a documented findings and plan of care. Patient was seen and examined.
--- NOTE | 2018-03-22 10:16 | CDI ---
Documentation Clarification Form Date: 03/22/18 From: Bernice Tadeo Admit Date: 02/22/2018 11:58:00 AM Patient Name: Grisel Suárez Visit Number: [id number] Discharge Date: 02/25/18 ATTENTION: The Clinical Documentation Specialists (CDI) and [facility] Coding Staff appreciate your assistance in clarifying documentation. Please respond to the clarification below the line at the bottom and electronically sign. The CDI & [facility] Coding staff will review the response and follow-up if needed. Please note: Queries are made part of the Legal Health Record. If you have any questions, please contact the author of this message via ITS. Dr. Fabián Finley Consults states congestive heart failure exacerbation secondary to systolic dysfunction DC summary states Acute diastolic CHF exacerbation: Echocardiogram Results: Echo from 01/25/2018 shows an EF of 55- 60% with mild to moderate aortic regurgitation and tricuspid regurgitation with mild pulmonary hypertension. In your professional opinion, can you please clarify the acuity and type of CHF if known? Systolic Heart Failure: Acute Chronic Acute on Chronic Diastolic Heart Failure: Acute Chronic Acute on Chronic Systolic & Diastolic Heart Failure: Acute Chronic Acute on Chronic Heart Failure Unable to Determine Other, please specify MTDD
--- NOTE | 2018-03-24 11:41 | CDI ---
Last Revision, October 2017 Documentation Clarification Form Date: 03/24/18 From: Bernice Tadeo-Research Administrator Phone: Pilar Woo - Electrical Installation Supervisor- [phone] Patient Name: Grisel Suárez Visit Number: [id number] Admit Date: 02/22/18 Discharge Date: 02/25/18 ATTENTION: The Clinical Documentation Specialists (CDI) and [facility] Coding Staff appreciate your assistance in clarifying documentation. Please respond to the clarification below the line at the bottom and electronically sign. The CDI & [facility] Coding staff will review the response and follow-up if needed. Please note: Queries are made part of the Legal Health Record. If you have any questions, please contact the author of this message via ITS. Dr. Finley Consults states congestive heart failure exacerbation secondary to systolic dysfunction DC summary states Acute diastolic CHF exacerbation. Echocardiogram Results: Echo from 01/25/2018 shows an EF of 55- 60% with mild to moderate aortic regurgitation and tricuspid regurgitation with mild pulmonary hypertension. Due to conflicting documentation, can you please clarify the acuity and type of CHF if known? Systolic Heart Failure: Acute Chronic Acute on Chronic Diastolic Heart Failure: Acute Chronic Acute on Chronic Systolic & Diastolic Heart Failure: Acute Chronic Acute on Chronic Heart Failure Unable to Determine Other, please specify MTDD
--- NOTE | 2018-03-25 07:41 | CDI ---
Date: 03/24/18 From: Bernice Tadeo-Senior Cost Analyst Phone: Pilar Woo - Electronic Data Processing Auditor- [phone] Patient Name: Grisel Suárez Visit Number: [id number] Admit Date: 02/22/18 Discharge Date: 02/25/18 ATTENTION: The Clinical Documentation Specialists (CDI) and [facility] Coding Staff appreciate your assistance in clarifying documentation. Please respond to the clarification below the line at the bottom and electronically sign. The CDI [facility] Coding staff will review the response and follow-up if needed. Please note: Queries are made part of the Legal Health Record. If you have any questions, please contact the author of this message via ITS. Dr. Finley Consults states congestive heart failure exacerbation secondary to systolic dysfunction DC summary states Acute diastolic CHF exacerbation. Echocardiogram Results: Echo from 01/25/2018 shows an EF of 55- 60% with mild to moderate aortic regurgitation and tricuspid regurgitation with mild pulmonary hypertension. Due to conflicting documentation, can you please clarify the acuity and type of CHF if known? Systolic Heart Failure: Acute Chronic Acute on Chronic Diastolic Heart Failure: Acute Chronic Acute on Chronic Systolic Diastolic Heart Failure: Acute Chronic Acute on Chronic Heart Failure Unable to Determine Other, please specify MTDD
--- NOTE | 2018-04-12 07:30 | CDI ---
Documentation Clarification Form Date: 04/12/18 From: Bernice Tadeo Phone: Pilar Woo - Program Lead- [phone] Admit Date: 02/22/2018 11:58:00 AM Patient Name: Grisel Suárez Visit Number: [id number] Discharge Date: 02/22/18 ATTENTION: The Clinical Documentation Specialists (CDI) and [facility] Coding Staff appreciate your assistance in clarifying documentation. Please respond to the clarification below the line at the bottom and electronically sign. The CDI & [facility] Coding staff will review the response and follow-up if needed. Please note: Queries are made part of the Legal Health Record. If you have any questions, please contact the author of this message via ITS. Dr. Fabián Finley Consults states congestive heart failure exacerbation secondary to systolic dysfunction DC summary states Acute diastolic CHF exacerbation: Echocardiogram Results: Echo from 01/25/2018 shows an EF of 55- 60% with mild to moderate aortic regurgitation and tricuspid regurgitation with mild pulmonary hypertension. In your professional opinion, can you please clarify the acuity and type of CHF if known? Systolic Heart Failure: Acute Chronic Acute on Chronic Diastolic Heart Failure: Acute Chronic Acute on Chronic Systolic & Diastolic Heart Failure: Acute Chronic Acute on Chronic Heart Failure Unable to Determine Other, please specify MTDD
== END 2018-02-25 13:21 | disposition home or self-care (01) | DRG 291 ==
LOC: 6SEL 11:58
PROVIDERS: ADMIT Internal Medicine; ATTEND Internal Medicine
DX: I13.0 Hypertensive heart and chronic kidney disease with heart failure and stage 1 through stage 4 chronic kidney disease, or unspecified chronic kidney disease (principal); I50.33 Acute on chronic diastolic (congestive) heart failure; I95.9 Hypotension, unspecified; I27.20 Pulmonary hypertension, unspecified; J44.9 Chronic obstructive pulmonary disease, unspecified; I08.2 Rheumatic disorders of both aortic and tricuspid valves; I48.0 Paroxysmal atrial fibrillation; N18.3 Chronic kidney disease, stage 3 (moderate); I25.10 Atherosclerotic heart disease of native coronary artery without angina pectoris; E78.5 Hyperlipidemia, unspecified; E03.9 Hypothyroidism, unspecified; K21.9 Gastro-esophageal reflux disease without esophagitis; M19.90 Unspecified osteoarthritis, unspecified site; D50.9 Iron deficiency anemia, unspecified; F41.1 Generalized anxiety disorder; K58.9 Irritable bowel syndrome, unspecified; M45.4 Ankylosing spondylitis of thoracic region; Z87.442 Personal history of urinary calculi; Z79.890 Hormone replacement therapy; Z88.6 Allergy status to analgesic agent; Z91.041 Radiographic dye allergy status; Z91.013 Allergy to seafood; Z95.1 Presence of aortocoronary bypass graft; Z79.01 Long term (current) use of anticoagulants; Z88.2 Allergy status to sulfonamides; Z91.048 Other nonmedicinal substance allergy status; Z79.899 Other long term (current) drug therapy; Z79.82 Long term (current) use of aspirin; Z79.891 Long term (current) use of opiate analgesic; Z80.1 Family history of malignant neoplasm of trachea, bronchus and lung; Z80.3 Family history of malignant neoplasm of breast; Z82.3 Family history of stroke; Z85.828 Personal history of other malignant neoplasm of skin; Z90.710 Acquired absence of both cervix and uterus; Z90.89 Acquired absence of other organs; Z86.73 Personal history of transient ischemic attack (TIA), and cerebral infarction without residual deficits; Z81.1 Family history of alcohol abuse and dependence
CPT/HCPCS: 71046; 80053; 82728; 83540; 83550; 83880; 84439; 84443; 84484; 85025; 85610; 93970

== ENCOUNTER 2018-03-22 11:07 | Day surgery (SDC) | payer MEDICARE ==
[~2018-03-22 11:07] MED LIST changes: +SODIUM CHLORIDE 0.9% 1,000 ML IV SCH
[2018-03-22] MEDS ORDERED: SODIUM CHLORIDE 0.9% 500 ML IV ONE ×3 (12:35)
[2018-03-22 12:51] LABS: INR 1.2 (<1.2)
[2018-03-22 12:52] LABS: Prothrombin Time 11.5 sec (9.0-12.0)
[2018-03-22] MEDS ORDERED: ENOXAPARIN 60 MG/0.6 ML SYRINGE SQ STA (12:54)
[2018-03-22] MEDS ORDERED: WARFARIN 2.5 MG TAB PO ONE (13:08)
[2018-03-22] MEDS ORDERED: BENZOCAINE SPRAY 1 CAN MUCOUS MEM ONE (15:31)
[2018-03-22] MEDS: BENZOCAINE SPRAY 1 CAN MUCOUS MEM ONE ×2 (15:31→15:38)
[2018-03-22] MEDS ORDERED: PROPOFOL 10 MG/ML 20 ML VIAL IV ONE (15:36)
--- NOTE | 2018-03-22 16:23 | ECHOT ---
TRANSESOPHAGEAL ECHOCARDIOGRAM This patient was brought by Dr. Ryne Segovia for cardioversion. Patient's INR was subtherapeutic. In view of that, the patient got Lovenox, and subsequently transesophageal echocardiogram and cardioversion were recommended. The patient was given intravenous sedation with propofol by the nurse chief deputy sheriff and transesophageal echocardiogram was performed without any complications. Left ventricular chamber is mildly dilated with evidence of global hypokinesia with an ejection fraction of 30% to 35%. There is a mild degree of mitral regurgitation noted. Moderate to severe degree of tricuspid regurgitation was noted. There is no evidence of thrombus in the left atrium. 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 Interatrial septum was intact. Mild aortic regurgitation was noted. FINAL IMPRESSION: 1. There is no evidence of thrombus in the left atrium. 2. 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 3. There is a mild to moderate degree of mitral and severe degree of tricuspid regurgitation noted and a mild degree of aortic regurgitation noted. 4. Left ventricular systolic function is impaired, with an ejection fraction of 30% to 35%. CARDIOVERSION: The patient was given intravenous sedation with propofol by the nurse chief deputy sheriff and cardioversion was performed with 200 joules in a synchronized mode to the normal sinus rhythm. Patient tolerated the procedure well. CAROL / RUTHN: [id number] /
[2018-03-22] MEDS ORDERED: APIXABAN 2.5 MG TABLET PO SCH (20:00)
[2018-03-22 20:29] VITALS: BP 111/52; PULSE 56; RESP 16; TEMP 98
== END 2018-03-22 21:00 | disposition home or self-care (01) ==
LOC: CATHCVL 11:07 → 3OBS 15:53 → CATHCVL 21:00
PROVIDERS: ATTEND Internal Medicine Interventional Cardiology
DX: I48.0 Paroxysmal atrial fibrillation (principal); I08.3 Combined rheumatic disorders of mitral, aortic and tricuspid valves; Z91.048 Other nonmedicinal substance allergy status; Z79.01 Long term (current) use of anticoagulants; I25.10 Atherosclerotic heart disease of native coronary artery without angina pectoris; I10 Essential (primary) hypertension; E78.00 Pure hypercholesterolemia, unspecified; Z95.1 Presence of aortocoronary bypass graft; E03.9 Hypothyroidism, unspecified; G25.0 Essential tremor; Z79.82 Long term (current) use of aspirin; Z79.890 Hormone replacement therapy; Z79.899 Other long term (current) drug therapy; Z91.040 Latex allergy status; Z88.5 Allergy status to narcotic agent; Z88.2 Allergy status to sulfonamides
CPT/HCPCS: 93312; 93320; 93325; 92960; 85610; J1650; J2704